=== PATIENT | female | born 1975 | race Caucasian/White ===

== ENCOUNTER 2016-07-17 15:53 | Inpatient (IN) | payer BC ==
[2016-07-17 16:38] LABS: Urine Bacteria Absent (Absent); Urine Bilirubin Negative (Negative); Urine Glucose Negative (Negative); Urine Nitrite Negative (Negative)
[2016-07-17 16:39] LABS: Hematocrit 45 % (35-47); Mean Corpuscular HGB Conc 34 g/dl (31-36); Mean Corpuscular Hemoglobin 30 pg (27-31); Mean Corpuscular Volume 90 fL (80-97); Mean Platelet Volume 9 um3 (7.4-10.4); Red Blood Count 4.95 10^6/ul (4.0-5.4); Red Cell Distribution Width 13 % (10.5-15); White Blood Count 7.5 10^3/ul (3.5-10.8)
[2016-07-17 16:54] LABS: ALT 14 U/L (7-52); AST 15 U/L (13-39); Albumin 4.4 g/dL (3.2-5.2); Alkaline Phosphatase 60 U/L (34-104); Anion Gap 11 mmol/L (2-11); BUN/Creatinine Ratio 15.4 (8-20); Blood Urea Nitrogen 10 mg/dL (6-24); CO2 Carbon Dioxide 24 mmol/L (22-32); Chloride 99 mmol/L (101-111); EGFR African American 129.2 (>60); EGFR Non-African American 100.4 (>60); Globulin 4.6 g/dL (2-4); Glucose 170 mg/dL (70-100); Potassium 3.2 mmol/L (3.5-5.0); Sodium 134 mmol/L (133-145)
[2016-07-17 16:55] LABS: Benzodiazepine Urine Screen None Detected (None Detect)
[2016-07-17 17:18] LABS: Acetaminophen < 15 mcg/mL; Alcohol < 10 mg/dL (<10); Salicylate < 2.50 mg/dL (<30)
[2016-07-17 17:28] LABS: TSH (Thyroid Stimulating Horm) 0.82 mcIU/mL (0.34-5.60)
[2016-07-17] MEDS ORDERED: Potassium Chlor TAB* 20 MEQ TAB.ER PO ONE (17:30)
--- NOTE | 2016-07-17 19:14 | PN ---
Ruben Valencia Billy, scribed for Bennie Lei MD on 07/17/16 at 1913 . Progress Note - Progress Note Note: Signed off on voluntary admission to mental health services. Admitted to Dr. Witt. Diagnosis: Depression, psychosis Condition: Stable Disposition: Admit to [facility] mental health services. The documentation as recorded by the Ruben saab Billy accurately reflects the service I personally performed and the decisions made by Do mack Drew, MD.
[2016-07-17] MEDS ORDERED: Al Hydrox/Mg Hydrox/Simet LIQ* 30 ML UDC PO PRN (20:55)
[2016-07-17] MEDS ORDERED: Acetaminophen TAB* 325 MG PO PRN (20:55)
[2016-07-18] MEDS: Paliperidone TAB* 6 MG PO SCH (08:02)
[2016-07-18] MEDS: Vitamin THERAPEUTIC TAB PO SCH (08:02)
[2016-07-18] MEDS: Sertraline* 100 MG TAB PO SCH (08:02)
[2016-07-18] MEDS ORDERED: Influenza VAC *QUAD* 2016-17* 0.5 ML SYRINGE IM ONE (09:00)
[2016-07-18] MEDS ORDERED: Nicotine Inhaler* 10 MG AMP INH PRN (10:28)
[2016-07-18] MEDS ORDERED: Mouth Piece, Nicotine* 1 EACH CARTRIDGE INH ONE (11:00)
--- NOTE | 2016-07-18 11:47 | HP ---
DATE OF ADMISSION: 07/17/2016. IDENTIFYING DATA: Kristie Mathew is a 41-year-old, , domiciled, employed female with a history of psychosis, prior psychiatric hospitalizations, and diagnostic considerations for depression, bipolar disorder, dissociative disorder, and chronic psychotic disorder. She is admitted to the Psychiatric Unit after coming to the hospital emergency room by ambulance due to concerns over suicidal ideation, poor functioning, and worry about "becoming psychotic and depressed." HISTORY OF PRESENT ILLNESS: Kristie was last admitted to our psychiatric unit in October of 2015. She reports an up and down course since then saying that she tries really hard to function and do well for a period of time and then "gives up." She reports consistent treatment at [facility], but said she went off her medications for about two months starting in April after the disappointment of her daughter being arrested for shoplifting. She reported taking her current regimen for about two months now. She reports chronic depression, but feels that over the last few weeks she has been sad and down pretty much all the time with feelings of helplessness and hopelessness. She notes some ability to enjoy things. Sleep has been erratic and energy is low. She had some suicidal thoughts the other day, but she affirms with me that she would never take her own life based on attachment to her family and concern for the impact on them. She reports chronic levels of anxiety that are generally elevated, but reports "it's been a little bit better lately." She denies manic symptoms. She reports auditory hallucinations, saying voices are basically her own thoughts, but they feel distant like they are another person. They basically give her content that is somewhat self critical. She denied any commands. She denied violent ideation or new health diagnosis. She denied the use of alcohol or drugs. She reported variable amounts of cigarette smoking. She was interested in receiving advice on any medication adjustments and also having the support of the unit. She is expected to improve here. She reports additional psychotic symptom of paranoid ideation in which she believes other people are always talking about her. She says it is episodic, but it is actually occurring here on the unit with her having ideas of reference this morning. PRIOR PSYCHIATRIC HISTORY: Two previous psychiatric hospitalizations. She has had psychotic symptoms on her episodes. The first was in July of 2014. She previously had only a brief instance of outpatient counseling in 1976 due to depression. She has been in outpatient care at [facility]. Prior medication trial was Risperidone. She has no known history of suicidal behavior, self-harm, or violence. Diagnostic considerations have included schizoaffective disorder, depression with psychotic features, PTSD, dissociative process. PAST MEDICAL HISTORY: Hypertension, obesity. CURRENT OUTPATIENT REGIMEN (ADHERENT FOR THE LAST COUPLE OF MONTHS): 1. Sertraline 100 mg a day. 2. Paliperidone 12 mg per day. ALLERGIES: No known drug allergies. FAMILY PSYCHIATRIC HISTORY: Brother had alcohol dependence and a suicide attempt. Father had alcohol dependence. A paternal aunt had alcohol dependence. No known history of other suicidal behavior. SUBSTANCE USE HISTORY: Denies current use of alcohol or drugs and previously said she used alcohol very sporadically. She denied ever having use of illicit drugs or having any prescription medication abuse. She has reported a variable amount of around a half-a-pack of cigarettes per day. SOCIAL HISTORY: Grew up in [place], [place] and was raised by both her parents. Her father has . She has a brother and sister. She left school in 12th grade, but later got her GED and trained in the [email or web address]. 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 She has been with her for about 20 years. She has a 22-year- old son from a previous relationship and she and her have children, 16 and 19. Her brother has involved in her life and lives nearby. MENTAL STATUS EXAMINATION: Obese, middle-aged, female who is fairly well- kempt with good hygiene. She is somewhat sullen looking and tearful, maintains good eye contact. Speech is terse, nonspontaneous with somewhat longer latencies at times. Mood is described as "down." Affect is constricted and dysphoric, but brightens a little bit. Her thought process is impoverished , thought content negative for suicidal or homicidal ideation. She notes some ideas of reference and paranoid delusions. Sensorium is currently clear. She is alert and oriented times three. Insight and judgment is fair to poor and impulse control is currently intact. REVIEW OF SYSTEMS: Negative for seizures or neurologic changes. Reports recent upper respiratory tract infection, either a cold or bronchitis and a subsequent cough which is ongoing now. Denied chest pain or syncope. Noted some gastrointestinal distress with left-sided fullness, bloating, and flatulence. Reported history of constipation and diarrhea. Reports urinary discomfort when not drinking enough water. Reports left ankle chronic pain. Denied skin problems. PHYSICAL EXAMINATION GENERAL: Obese, middle-aged, woman who is cooperative for the examination, wearing scrub clothing. SKIN: Intact without rash or petechia over the exposed areas. VITAL SIGNS: Temperature 99, blood pressure 114/68, pulse 77, respiratory rate 16. HEENT: Atraumatic, normocephalic. Eyes with full ROM and PERRLA. Oropharynx is clear. NECK: Midline trachea. CHEST: Clear to auscultation bilaterally. CARDIAC: Regular rate and rhythm. S1, S2. No murmurs, rubs or gallops. ABDOMEN: Soft, nontender, nondistended, obese. Bowel sounds are normal. EXTREMITIES: Distal pulses are intact bilaterally. NEUROLOGIC: Gait is within normal limits. The four extremities move spontaneously. Cranial nerves II through XII are grossly nonfocal and deep tendon reflexes are present at the patellae. ADMISSION LABORATORY STUDIES: CBC had 84 percent neutrophils and 10 percent lymphocytes with 0.7 absolute lymphocytes. Comprehensive panel had potassium of 3.2, chloride of 99, glucose of 107, a total protein of 9, and a globulin of 4.6. Urinalysis had 2+ protein, trace ketones, present squamous epithelial cells , and present hyaline cast. Toxicology screen is negative for Tylenol, alcohol or salicylates. Urine drug screen was negative. IMPRESSION: Kristie is medically stable for psychiatric hospitalization. CLINICAL SUMMARY: Third psychiatric hospitalization for this 41-year-old female with psychotic tendencies and mood condition, and possible dissociative features. She presents with distress, difficulty functioning, some level of passive suicidal ideation, report of auditory hallucinations and delusional thoughts. This is in the setting of subacute interruption of treatment, but ongoing medication adherence now and routine life stressors. She merits psychiatric hospitalization for safety, stabilization and treatment plan. ADMISSION DIAGNOSES: Mood disorder, not otherwise specified; psychotic disorder , not otherwise specified; rule out schizoaffective disorder, dissociative disorder, depression with psychotic features. TREATMENT PLAN: Admit to the Psychiatric Unit, code status is full, safety checks are at 15 minute intervals. Initiate comprehensive group milieu and individual psychotherapeutic support. Medication management continues the outpatient medication regimen at this time and we will discuss any further intervention with the outpatient psychiatrist, Dr. Bell. Target symptoms are hallucinations, delusional ideation, elevated distress, dysphoria and recent suicidal thoughts. The patient's strengths are her positive help seeking behavior and her intact intellectual functioning and basic baseline health. Discharge planning will involve coordination with appropriate aftercare. [id number]/[facility] #: [id number] TASIA
--- NOTE | 2016-07-18 18:09 | ED ---
Hellen Valencia Alok, scribed for David Flores MD on 07/17/16 at 1609 . Psychiatric Complaint - HPI Summary HPI Summary: 41 y/o female presents to the ED with c/o of depression with SI. Pt states she has been having suicidal thoughts since three days ago but no plan for execution. Pt adds she has been quite isolated as well as paranoid as of late. PMHx includes depression, anxiety, and HTN. Medications include sertraline. PSHx includes a caesarean section and tubal litigation. - History Of Current Complaint Time Seen by Provider: 07/17/16 16:00 Hx Obtained From: Patient ?: No Onset/Duration: Gradual Onset, Lasting Days, Still Present Severity Initially: Moderate Severity Currently: Moderate Character: Depressed, Anxious Aggravating Factor(s): Nothing Alleviating Factor(s): Nothing Associated Signs And Symptoms: Positive: Paranoid Behavior, Social Isolation Has Suicidal: Reports: Thoughts - Allergies/Home Medications Allergies/Adverse Reactions: Allergies Allergy/AdvReac Type Severity Reaction Status Date / Time No Known Allergies Allergy Verified 11/03/15 22:28 Home Medications: Home Medications Paliperidone TAB* [Invega TAB*] 12 mg PO DAILY 07/17/16 [History Confirmed 07/17] Sertraline* [Zoloft*] 100 mg PO DAILY 07/17/16 [History Confirmed 07/17/16] PMH/Surg Hx/FS Hx/Imm Hx Endocrine/Hematology History: Denies: Hx Diabetes Cardiovascular History: Reports: Hx Hypertension Denies: Hx Pacemaker/ICD Respiratory History: Reports: Hx Asthma History: Denies: Hx Renal Disease Neurological History: Reports: Hx Headaches Psychiatric History: Reports: Hx Anxiety, Hx Depression, Hx Community Mental Health Tx, Hx Schizophrenia Denies: Hx Eating Disorder, Hx Panic Disorder, Hx Inpatient Treatment, Hx of Violent Episodes Against Others - Surgical History Surgery Procedure, Year, and Place: , tubal with right tub removed, right ovarian cyst removed - Family History Known Family History: Positive: Hypertension - Mother - Social History Lives: With Family - Alcohol Use: None Substance Use Type: Reports: None Smoking Status (MU): Never Smoked Tobacco Review of Systems Negative: Fever Positive: Anxious, Depressed All Other Systems Reviewed And Are Negative: Yes Physical Exam Triage Information Reviewed: Yes Vital Signs On Initial Exam: Initial Vitals Temp Pulse Resp BP Pulse Ox 98.6 F 124 18 146/88 98 07/17/16 16:09 07/17/16 16:09 07/17/16 16:09 07/17/16 16:09 07/17/16 16:09 Vital Signs Reviewed: Yes Appearance: Positive: Well-Appearing, No Pain Distress, Well-Nourished Skin: Positive: Warm, Skin Color Reflects Adequate Perfusion, Dry Head/Face: Positive: Normal Head/Face Inspection Eyes: Positive: Normal, EOMI, KANU ENT: Positive: Normal ENT inspection Neck: Positive: Supple, Nontender Respiratory/Lung Sounds: Positive: Clear to Auscultation, Breath Sounds Present Cardiovascular: Positive: Normal, RRR Abdomen Description: Positive: Nontender, Soft Bowel Sounds: Positive: Present Musculoskeletal: Positive: Normal, Strength/ROM Intact Neurological: Positive: Normal, Sensory/Motor Intact, Alert, Oriented to Person Place, Time Psychiatric: Positive: Anxious Diagnostics - Vital Signs Vital Signs Temp Pulse Resp BP Pulse Ox 07/17/16 16:09 98.6 F 124 18 146/88 98 - Laboratory Lab Results: Lab Results 07/17/16 07/17/16 07/17/16 Range/Units 16:18 16:18 16:32 WBC 7.5 (3.5-10.8) 10^3/ul RBC 4.95 (4.0-5.4) 10^6/ul Hgb 15.0 (12.0-16.0) g/dl Hct 45 (35-47) % MCV 90 (80-97) fL MCH 30 (27-31) pg MCHC 34 (31-36) g/dl RDW 13 (10.5-15) % Plt Count 228 (150-450) 10^3/ul MPV 9 (7.4-10.4) um3 Neut % (Auto) 84.0 H (38-83) % Lymph % (Auto) 10.0 L (25-47) % Assumption % (Auto) 4.7 (1-9) % Eos % (Auto) 0.3 (0-6) % Baso % (Auto) 1.0 (0-2) % Absolute Neuts (auto) 6.3 (1.5-7.7) 10^3/ul Absolute Lymphs (auto) 0.7 L (1.0-4.8) 10^3/ul Absolute Monos (auto) 0.4 (0-0.8) 10^3/ul Absolute Eos (auto) 0 (0-0.6) 10^3/ul Absolute Basos (auto) 0.1 (0-0.2) 10^3/ul Absolute Nucleated RBC 0 10^3/ul Nucleated RBC % 0 Sodium (133-145) mmol/L Potassium (3.5-5.0) mmol/L Chloride (101-111) mmol/L Carbon Dioxide (22-32) mmol/L Anion Gap (2-11) mmol/L BUN (6-24) mg/dL Creatinine (0.51-0.95) mg/dL Est GFR ( Amer) (>60) Est GFR (Non-Af Amer) (>60) BUN/Creatinine Ratio (8-20) Glucose (70-100) mg/dL Calcium (8.6-10.3) mg/dL Total Bilirubin (0.2-1.0) mg/dL AST (13-39) U/L ALT (7-52) U/L Alkaline Phosphatase (34-104) U/L Total Protein (6.4-8.9) g/dL Albumin (3.2-5.2) g/dL Globulin (2-4) g/dL Albumin/Globulin Ratio (1-3) TSH (0.34-5.60) mcIU/mL Urine Color Yellow Urine Appearance Cloudy Urine pH 5.0 (5-9) Ur Specific Lindsay 1.016 (1.010-1.030) Urine Protein 2+(100 mg/dl) H (Negative) Urine Ketones Trace H (Negative) Urine Blood Negative (Negative) Urine Nitrate Negative (Negative) Urine Bilirubin Negative (Negative) Urine Urobilinogen Negative (Negative) Ur Leukocyte Esterase Negative (Negative) Urine WBC (Auto) Absent (Absent) Urine RBC (Auto) Absent (Absent) Ur Squamous Epith Cells Present H (Absent) Urine Bacteria Absent (Absent) Hyaline Casts Present H (Absent) Urine Glucose Negative (Negative) Salicylates (<30) mg/dL Urine Opiates Screen None detected (None Detect) Acetaminophen mcg/mL Ur Barbiturates Screen None detected (None Detect) Ur Phencyclidine Scrn None detected (None Detect) Ur Amphetamines Screen None detected (None Detect) U Benzodiazepines Scrn None detected (None Detect) Urine Cocaine Screen None detected (None Detect) U Cannabinoids Screen None detected (None Detect) Serum Alcohol (<10) mg/dL 07/17/16 Range/Units 16:32 WBC (3.5-10.8) 10^3/ul RBC (4.0-5.4) 10^6/ul Hgb (12.0-16.0) g/dl Hct (35-47) % MCV (80-97) fL MCH (27-31) pg MCHC (31-36) g/dl RDW (10.5-15) % Plt Count (150-450) 10^3/ul MPV (7.4-10.4) um3 Neut % (Auto) (38-83) % Lymph % (Auto) (25-47) % Assumption % (Auto) (1-9) % Eos % (Auto) (0-6) % Baso % (Auto) (0-2) % Absolute Neuts (auto) (1.5-7.7) 10^3/ul Absolute Lymphs (auto) (1.0-4.8) 10^3/ul Absolute Monos (auto) (0-0.8) 10^3/ul Absolute Eos (auto) (0-0.6) 10^3/ul Absolute Basos (auto) (0-0.2) 10^3/ul Absolute Nucleated RBC 10^3/ul Nucleated RBC % Sodium 134 (133-145) mmol/L Potassium 3.2 L (3.5-5.0) mmol/L Chloride 99 L (101-111) mmol/L Carbon Dioxide 24 (22-32) mmol/L Anion Gap 11 (2-11) mmol/L BUN 10 (6-24) mg/dL Creatinine 0.65 (0.51-0.95) mg/dL Est GFR ( Amer) 129.2 (>60) Est GFR (Non-Af Amer) 100.4 (>60) BUN/Creatinine Ratio 15.4 (8-20) Glucose 170 H (70-100) mg/dL Calcium 10.0 (8.6-10.3) mg/dL Total Bilirubin 0.30 (0.2-1.0) mg/dL AST 15 (13-39) U/L ALT 14 (7-52) U/L Alkaline Phosphatase 60 (34-104) U/L Total Protein 9.0 H (6.4-8.9) g/dL Albumin 4.4 (3.2-5.2) g/dL Globulin 4.6 H (2-4) g/dL Albumin/Globulin Ratio 1.0 (1-3) TSH 0.82 (0.34-5.60) mcIU/mL Urine Color Urine Appearance Urine pH (5-9) Ur Specific Lindsay (1.010-1.030) Urine Protein (Negative) Urine Ketones (Negative) Urine Blood (Negative) Urine Nitrate (Negative) Urine Bilirubin (Negative) Urine Urobilinogen (Negative) Ur Leukocyte Esterase (Negative) Urine WBC (Auto) (Absent) Urine RBC (Auto) (Absent) Ur Squamous Epith Cells (Absent) Urine Bacteria (Absent) Hyaline Casts (Absent) Urine Glucose (Negative) Salicylates < 2.50 (<30) mg/dL Urine Opiates Screen (None Detect) Acetaminophen < 15 mcg/mL Ur Barbiturates Screen (None Detect) Ur Phencyclidine Scrn (None Detect) Ur Amphetamines Screen (None Detect) U Benzodiazepines Scrn (None Detect) Urine Cocaine Screen (None Detect) U Cannabinoids Screen (None Detect) Serum Alcohol < 10 (<10) mg/dL Result Diagrams: 07/17/16 16:32 07/17/16 16:32 Lab Statement: Any lab studies that have been ordered have been reviewed, and results considered in the medical decision making process. Course/Dx - Course Course Of Treatment: 41 y/o female presents to the ED with c/o of depression with SI. Pt states she has been having suicidal thoughts since three days ago but no plan for execution. Pt adds she has been quite isolated as well as paranoid as of late. PMHx includes depression, anxiety, and HTN. Medications include sertraline. PSHx includes a caesarean section and tubal litigation. Assessment/Plan: All blood work WNL. He is medically cleared. He is awaiting for a MHE. Patient is hemodynamically stable and A+O x 3. Patient was signed out to next ER Attending - Differential Dx/Clinical Impression Differential Diagnosis/HQI/PQRI: Positive: Depression, Suicidal Ideation Provider Diagnosis: Depression Discharge - Discharge Plan Condition: Stable Disposition: ADMITTED TO [facility] documentation as recorded by the Hellen saab Alok accurately reflects the service I personally performed and the decisions made by , David Flores MD.
[2016-07-18] MEDS ORDERED: hydrOXYzine HCL TAB* 50 MG ONE (21:05)
[2016-07-18] MEDS ORDERED: traZODone TAB* 50 MG TAB PO ONE (22:00)
[2016-07-18] MEDS ORDERED: hydrOXYzine HCL TAB* 50 MG PO ONE (22:00)
[2016-07-19] MEDS: Sertraline* 100 MG TAB PO SCH ×2 (08:41→10:55)
[2016-07-19] MEDS: Vitamin THERAPEUTIC TAB PO SCH (08:41)
[2016-07-19] MEDS ORDERED: Mouth Piece, Nicotine* 1 EACH CARTRIDGE ONE (10:03)
[2016-07-19] MEDS: Paliperidone TAB* 6 MG PO SCH ×2 (10:13→10:55)
[2016-07-19] MEDS ORDERED: Benztropine TAB* 1 MG PO ONE (11:00)
[2016-07-19] MEDS ORDERED: LORazepam TAB(*) 1 MG PO ONE ×2 (11:00→19:14)
[2016-07-19] MEDS ORDERED: LORazepam INJ* 2 MG/ML 1 ML VIAL IM PRN (19:14)
[2016-07-19] MEDS ORDERED: LORazepam TAB(*) 1 MG ONE (19:17)
[2016-07-20] MEDS: Vitamin THERAPEUTIC TAB PO SCH (08:49)
[2016-07-20] MEDS: Sertraline* 100 MG TAB PO SCH (08:49)
[2016-07-20] MEDS: Paliperidone TAB* 6 MG PO SCH (08:49)
[2016-07-20] MEDS: Benztropine TAB* 1 MG PO SCH ×2 (13:36→21:31)
--- NOTE | 2016-07-20 21:11 | PN ---
Subjective - Subjective Service Type: 44220 Hosp care 15 min low complexity Subjective: Kristie had rough time yesterday but doing much better today. She appeared to be experiencing akathesia and was found pacing and intruding into others' spaces. Refused to tale any meds and finally took PO LOrazepam and Cogentin. She has been doing fine all day today. Objective - Appearance Appearance: Obese Dysmorphic Features: No Hygiene: Normal Grooming: Disheveled - Behavior Psychomotor Activities: Normal Exhibits Abnormal Movement: No - Attitude and Relatedness Attitude and Relatedness: Appropriate Eye Contact: Fair - Speech Quality: Unpressured Latencies: Normal Quantity: Appropriate - Mood Patient's Decription of Mood: "Okay" - Affect Observed Affect: Non-labile - Thought Process Patient's Thought Process: Coherent, Goal Directed Thought Content: No Passive Wish, No Suicidal Planning, No Homicidal Ideation, No Paranoid Ideation - Sensorium Experiencing Hallucinations: No, Sensorium is Clear Type of Hallucinations: Visual: No, Auditory: No, Command: No - Level of Consciousness Level of Consciousness: Alert Orientation: Yes Intact, Yes Orientated to Time, Yes Orientated to Place, Yes Orientated to Person - Impulse Control Impulse Control: Intact - Insight and Judgement Insight and Judgement: Fair - Group Participation Particating in Group Activities: No - Medication Management Medication Management Adherence: Yes Assessment - Assessment Merits Inpatient Hospitalization: For Stabilization, For Discharge Planning Plan - Plan Treatment Plan: Name: KRISTIE SEGOVIA Birthdate: 1975 [id number] Continued Medication Management: Continue Outpt Medication Medications: Current Medications Acetaminophen (Tylenol Tab*) 650 mg PO Q4H PRN PRN Reason: PAIN or TEMP > 101 F Al Hydrox/Mg Hydrox/Simethicone (Maalox Plus*) 30 ml PO Q4H PRN PRN Reason: INDIGESTION Benztropine Mesylate (Cogentin Tab*) 1 mg PO BID [facility] Last Admin: 07/20/16 13:36 Dose: 1 mg Multivitamins (Theragran Tab*) 1 tab PO DAILY [facility] Last Admin: 07/20/16 08:49 Dose: 1 tab Nicotine (Nicotine Inhaler*) 10 mg INH Q2H PRN PRN Reason: CRAVING Last Admin: 07/18/16 12:06 Dose: 10 mg Paliperidone (Invega Tab*) 12 mg PO DAILY [facility] Last Admin: 07/20/16 08:49 Dose: 12 mg Sertraline HCl (Zoloft*) 100 mg PO DAILY [facility] Last Admin: 07/20/16 08:49 Dose: 100 mg - Discharge Plan Discharge Plan: Outpatient Follow Up Outpatient Program: [facility]
[2016-07-21] MEDS: Paliperidone TAB* 6 MG PO SCH (08:22)
[2016-07-21] MEDS: Sertraline* 100 MG TAB PO SCH (08:22)
[2016-07-21] MEDS: Vitamin THERAPEUTIC TAB PO SCH (08:22)
[2016-07-21] MEDS: Benztropine TAB* 1 MG PO SCH ×2 (08:22→21:21)
--- NOTE | 2016-07-21 08:56 | PN ---
Subjective - Subjective Service Type: 34869 Hosp care 15 min low complexity Subjective: Kristie reports ongoing struggle (tearfully): "I couldn't get it together!!" She reports ongoing hallucinations of voices, and appered to respond to internal stimuli. And she endorsed ideas of reference with people's conversation, feeling paranoid. Made no buddhist comments but acknowledged increase over the weekend. Agreed with info I relayed ( Dr. Bell's recommendation ) about Sustenna and consented to it. She was interested in higher dose Zoloft for mood and anxiety sxs. She affirmed she is safe here. She asked for medicine to help with cough (it has lingered after a recent cold). Objective - Appearance Appearance: Obese Hygiene: Normal Grooming: Well Kept - Behavior Psychomotor Activities: Normal - Attitude and Relatedness Attitude and Relatedness: Psychotically Related Eye Contact: Good - Speech Quality: Unpressured Latencies: Long Quantity: Terse - Mood Patient's Decription of Mood: "Upset" - Affect Observed Affect: Non-labile Affect Consistent with: Dysphoria - Thought Process Patient's Thought Process: Impoverished - blocked Thought Content: Yes Paranoid Ideation, No Passive Wish, No Suicidal Planning, No Homicidal Ideation - Sensorium Experiencing Hallucinations: Yes - Level of Consciousness Level of Consciousness: Alert - Impulse Control Impulse Control: Intact - Insight and Judgement Insight and Judgement: Poor Assessment - Assessment Merits Inpatient Hospitalization: For Immediate Safety, For Stabilization, To Initiate Treatment, For Ongoing Evaluation, For Discharge Planning, Pending Safe DC Plan Inpatient DSM-IV Dx: Mood disorder, not otherwise specified; psychotic disorder , not otherwise specified; rule out schizoaffective disorder, dissociative disorder, depression with psychotic features. Clinical Impression: Third psychiatric hospitalization for this 41-year-old female with psychotic tendencies and mood condition, and possible dissociative features. She presents with distress, difficulty functioning, some level of passive suicidal ideation, report of auditory hallucinations and delusional thoughts. This is in the setting of subacute interruption of treatment, but ongoing medication adherence now and routine life stress. Continues symptomatic with distress and psychosis (thought disorder, delusional ideation, hallucinations). Has been safe on checks but over the weekend Kristie had intrusive behavior and hyper-buddhist ideation. Medication management continues the outpatient medication regimen. We are switching Invega to Sustena depot, and raising Zoloft. Providing guaifensen for cough. I discussed further intervention with Kristie's outpatient psychiatrist, Dr. Bell. (spoke 07/21 - his view is that Kristie has done very well when adherent. Her regimen is appropriate, and he suspects, and I do to, that non-adherence played a role in this decompensation - he recommended Sustenna injection). Plan - Plan Treatment Plan: Name: KRISTIE SEGOVIA Birthdate: 1975 [id number] Continued Medication Management: Continue Outpt Medication Medications: Current Medications Acetaminophen (Tylenol Tab*) 650 mg PO Q4H PRN PRN Reason: PAIN or TEMP > 101 F Al Hydrox/Mg Hydrox/Simethicone (Maalox Plus*) 30 ml PO Q4H PRN PRN Reason: INDIGESTION Benztropine Mesylate (Cogentin Tab*) 1 mg PO BID [facility] Last Admin: 07/21/16 08:22 Dose: 1 mg Multivitamins (Theragran Tab*) 1 tab PO DAILY [facility] Last Admin: 07/21/16 08:22 Dose: 1 tab Nicotine (Nicotine Inhaler*) 10 mg INH Q2H PRN PRN Reason: CRAVING Last Admin: 07/18/16 12:06 Dose: 10 mg Paliperidone (Invega Tab*) 12 mg PO DAILY [facility] Last Admin: 07/21/16 08:22 Dose: 12 mg Sertraline HCl (Zoloft*) 100 mg PO DAILY [facility] Last Admin: 07/21/16 08:22 Dose: 100 mg - Discharge Plan Discharge Plan: Outpatient [facility]
[2016-07-21] MEDS ORDERED: Paliperidone TAB* 3 MG TAB PO SCH (11:30)
[2016-07-21] MEDS ORDERED: Paliperidone SUSTENNA* 234 MG/1.5 ML IM ONE (11:30)
[2016-07-21] MEDS: guaiFENesin ER TAB 600 MG PO SCH (12:54)
[2016-07-22] MEDS: Sertraline* 50 MG TAB PO SCH (07:54)
[2016-07-22] MEDS: guaiFENesin ER TAB 600 MG PO SCH (07:54)
[2016-07-22] MEDS: Vitamin THERAPEUTIC TAB PO SCH (07:54)
[2016-07-22] MEDS: Benztropine TAB* 1 MG PO SCH ×2 (07:54→21:31)
--- NOTE | 2016-07-22 13:54 | PN ---
Subjective - Subjective Service Type: 31276 Hosp care 15 min low complexity Subjective: Kristie reports "not doing well." She has latencies and staring, and endorsed "voices" saying "all (her) fears." She said she had thoughts of suicide this a.m., with no plans to act on it. She notes dysphoria, (delusionally) guilty ruminations, and anxiety. She accepted support and was guardedly hopeful she can be helped. I asked about physical symptoms. She reported an episode this a.m. saying "I was lying down and couldn't move my arms or legs... and felt turmoil in my chest." She denied any ongoing symptoms, chest pain, lightheadedness, or pattern of chest pain. She said her only somatic symptom is burning on urination and she suspects a UTI. Objective - Appearance Appearance: Obese Hygiene: Normal Grooming: Fairly Well Kept - Behavior Psychomotor Activities: Normal - Attitude and Relatedness Attitude and Relatedness: Needy Eye Contact: Good - Speech Quality: Unpressured Latencies: Long Quantity: Terse - Mood Patient's Decription of Mood: "Terrible" - Affect Observed Affect: Tense Affect Consistent with: Dysphoria - Thought Process Patient's Thought Process: Impoverished - blocked Thought Content: No Passive Wish, No Suicidal Planning, No Homicidal Ideation, No Paranoid Ideation - Sensorium Experiencing Hallucinations: Yes - Level of Consciousness Level of Consciousness: Alert - Impulse Control Impulse Control: Intact - Insight and Judgement Insight and Judgement: Poor Assessment - Assessment Merits Inpatient Hospitalization: For Immediate Safety, For Stabilization, To Initiate Treatment, For Ongoing Evaluation Inpatient DSM-IV Dx: Mood disorder, not otherwise specified; psychotic disorder , not otherwise specified; rule out schizoaffective disorder, dissociative disorder, depression with psychotic features. Clinical Impression: Third psychiatric hospitalization for this 41-year-old female with psychotic tendencies and mood condition, and possible dissociative features. She presents with distress, difficulty functioning, some level of passive suicidal ideation, report of auditory hallucinations and delusional thoughts. This is in the setting of subacute interruption of treatment, but ongoing medication adherence now and routine life stress. 1. Symptoms: Continues symptomatic with distress and psychosis (thought disorder, delusional ideation, hallucinations). Has been safe on checks without active suicidal ideation. Over the weekend she had intrusive behavior. 2. Medication management: continues the outpatient medication regimen, switching Invega to Sustena depot, and raising Zoloft, and providing guaifensen for cough. I discussed further intervention with Kristie's outpatient psychiatrist, Dr. Bell. (spoke 07/21 - his view is that Kristie has done very well when adherent. Her regimen is appropriate, and he suspects, and I do to, that non-adherence played a role in this decompensation - he recommended Sustenna injection). 3. Medical / somoatic. She complained of burning on urination 07/22 - U/A with reflex Micro ordered. She also reported brief inability to move limbs with "chest turmoil" which seems to be a psychogenic complex. Plan - Plan Treatment Plan: Name: KRISTIE SEGOVIA Birthdate: 1975 [id number] Continued Medication Management: Different Medication Medications: Current Medications Acetaminophen (Tylenol Tab*) 650 mg PO Q4H PRN PRN Reason: PAIN or TEMP > 101 F Last Admin: 07/22/16 07:54 Dose: 650 mg Al Hydrox/Mg Hydrox/Simethicone (Maalox Plus*) 30 ml PO Q4H PRN PRN Reason: INDIGESTION Benztropine Mesylate (Cogentin Tab*) 1 mg PO BID [facility] Last Admin: 07/22/16 07:54 Dose: 1 mg Guaifenesin (Mucinex*) 600 mg PO DAILY [facility] Last Admin: 07/22/16 07:54 Dose: 600 mg Multivitamins (Theragran Tab*) 1 tab PO DAILY [facility] Last Admin: 07/22/16 07:54 Dose: 1 tab Nicotine (Nicotine Inhaler*) 10 mg INH Q2H PRN PRN Reason: CRAVING Last Admin: 07/18/16 12:06 Dose: 10 mg Paliperidone (Invega Tab*) 3 mg PO DAILY [facility] Last Admin: 07/22/16 07:54 Dose: 3 mg Paliperidone Palmitate (Invega Sustenna*) 156 mg IM ONCE ONE Stop: 07/25/16 11:31 Sertraline HCl (Zoloft*) 150 mg PO DAILY [facility] Last Admin: 07/22/16 07:54 Dose: 150 mg - Discharge Plan Discharge Plan: Outpatient Follow Up
[2016-07-23] MEDS: Sertraline* 50 MG TAB PO SCH (09:05)
[2016-07-23] MEDS: Vitamin THERAPEUTIC TAB PO SCH (09:05)
[2016-07-23] MEDS: guaiFENesin ER TAB 600 MG PO SCH (09:06)
[2016-07-23] MEDS: Benztropine TAB* 1 MG PO SCH ×2 (09:06→20:18)
--- NOTE | 2016-07-23 11:18 | PN ---
[facility]: Group Therapy Note - Service Type Service Type: 20533 Group Psychotherapy - Cognitive Behavioral Group Therapy ( CBT):Patient attended CBT programming this morning and presented with flat affect that did not vary with discussion. Although responsive to direct prompts to respond to questions, patient did not engage in spontaneous conversation.
--- NOTE | 2016-07-23 13:08 | PN ---
Subjective - Subjective Service Type: 62522 Hosp care 15 min low complexity Subjective: Kristie reports remission of passive SI and continuation of benign AH of multiple voices making running commentary on her activities. Asked about and educated about current medication regimen. She complains of constipation and agrees to trial of metamucil. Objective - Appearance Appearance: Obese Dysmorphic Features: No Hygiene: Mal-odorous - Behavior Psychomotor Activities: Normal - mostly, but slightly slowed Exhibits Abnormal Movement: No - Attitude and Relatedness Attitude and Relatedness: Cooperative Eye Contact: Good - with fixed unblinking gaze - Speech Quality: Unpressured Latencies: Normal Quantity: Terse - Mood Patient's Decription of Mood: "Okay" - Affect Observed Affect: Depressed Affect Consistent with: Dysphoria - flat - Thought Process Patient's Thought Process: Coherent, Goal Directed, Impoverished Thought Content: No Passive Wish, No Suicidal Planning, No Homicidal Ideation, No Paranoid Ideation - Sensorium Experiencing Hallucinations: Yes Type of Hallucinations: Visual: No, Auditory: Yes, Command: No - Level of Consciousness Level of Consciousness: Alert Orientation: Yes Intact, Yes Orientated to Time, Yes Orientated to Place, Yes Orientated to Person - Impulse Control Impulse Control: Intact - Insight and Judgement Insight and Judgement: Poor - Group Participation Particating in Group Activities: Yes Group Participation Comments: noted as withdrawn at some groups - Medication Management Medication Management Adherence: Yes Assessment - Assessment Merits Inpatient Hospitalization: For Immediate Safety, For Stabilization, For Discharge Planning, Pending Safe DC Plan Inpatient DSM-IV Dx: Mood disorder, not otherwise specified; psychotic disorder , not otherwise specified; rule out schizoaffective disorder, dissociative disorder, depression with psychotic features. Clinical Impression: Kristie is a 41 year-old woman admitted for safety, assessement and treatment due to passive SI, AH and delusions. She has no complaint of UTI symptoms today : U/A with reflex micro sample is noted as uncollected in EMR. Does complain of constipation. Plan - Plan Treatment Plan: Name: KRISTIE SEGOVIA Birthdate: 1975 [id number] Continue increased Zoloft dose at 150 mg daily, booster Invega Sustenna 156 mg IM due on 07.25.16. Add HS metamucil against constipation. Spoke with nursing about collecting urine. Encourage engagement in groups, milieu. Plan aftercare. Medications: Current Medications Acetaminophen (Tylenol Tab*) 650 mg PO Q4H PRN PRN Reason: PAIN or TEMP > 101 F Last Admin: 07/22/16 07:54 Dose: 650 mg Al Hydrox/Mg Hydrox/Simethicone (Maalox Plus*) 30 ml PO Q4H PRN PRN Reason: INDIGESTION Benztropine Mesylate (Cogentin Tab*) 1 mg PO BID [facility] Last Admin: 07/23/16 09:06 Dose: 1 mg Guaifenesin (Mucinex*) 600 mg PO DAILY [facility] Last Admin: 07/23/16 09:06 Dose: 600 mg Multivitamins (Theragran Tab*) 1 tab PO DAILY [facility] Last Admin: 07/23/16 09:05 Dose: 1 tab Nicotine (Nicotine Inhaler*) 10 mg INH Q2H PRN PRN Reason: CRAVING Last Admin: 07/18/16 12:06 Dose: 10 mg Paliperidone Palmitate (Invega Sustenna*) 156 mg IM ONCE ONE Stop: 07/25/16 11:31 Sertraline HCl (Zoloft*) 150 mg PO DAILY [facility] Last Admin: 07/23/16 09:05 Dose: 150 mg - Discharge Plan Discharge Plan: Outpatient Follow Up
[2016-07-23] MEDS ORDERED: Docusate CAP* 100 MG PO ONE (13:16)
[2016-07-23 14:09] LABS: Urine Bacteria 1+ (Absent); Urine Bilirubin Negative (Negative); Urine Glucose Negative (Negative); Urine Nitrite Negative (Negative)
[2016-07-24] MEDS: Benztropine TAB* 1 MG PO SCH ×2 (08:57→21:57)
[2016-07-24] MEDS: Sertraline* 50 MG TAB PO SCH (08:57)
[2016-07-24] MEDS: Vitamin THERAPEUTIC TAB PO SCH (08:58)
[2016-07-24] MEDS: guaiFENesin ER TAB 600 MG PO SCH (08:58)
[2016-07-25] MEDS: Vitamin THERAPEUTIC TAB PO SCH (07:33)
[2016-07-25] MEDS: guaiFENesin ER TAB 600 MG PO SCH (07:33)
[2016-07-25] MEDS: Sertraline* 50 MG TAB PO SCH (07:33)
[2016-07-25] MEDS: Benztropine TAB* 1 MG PO SCH ×2 (07:33→20:28)
[2016-07-25] MEDS ORDERED: Paliperidone SUSTENNA* 156 MG/1 ML IM ONE (11:30)
--- NOTE | 2016-07-25 11:44 | PN ---
Subjective - Subjective Service Type: 34388 Hosp care 15 min low complexity Subjective: Kristie tearfully reports doing "Badly." She complains of ideas of reference with others' conversations, and feels paranoid. She denies auditory hallucinations. She notes feeling sad and down, and demoralized, and misses family. She recognized not having attained recovery, and agreed with care plan. She denied problems with Sustenna injection. She affirmed she is safe, and was interested in off unit walks. Objective - Appearance Appearance: Obese Hygiene: Normal Grooming: Fairly Well Kept - Behavior Psychomotor Activities: Abnormal-Decreased - Attitude and Relatedness Attitude and Relatedness: Psychotically Related Eye Contact: Good - Speech Quality: Unpressured Latencies: Long Quantity: Terse - Mood Patient's Decription of Mood: "Sad" - Affect Observed Affect: Tense Affect Consistent with: Dysphoria - Thought Process Patient's Thought Process: Impoverished - blocked Thought Content: Yes Paranoid Ideation, No Passive Wish, No Suicidal Planning, No Homicidal Ideation - Sensorium Experiencing Hallucinations: No, Sensorium is Clear - Level of Consciousness Level of Consciousness: Alert - Impulse Control Impulse Control: Intact - Insight and Judgement Insight and Judgement: Poor Assessment - Assessment Merits Inpatient Hospitalization: For Stabilization, To Initiate Treatment, For Ongoing Evaluation, Consolidate Improvements, For Discharge Planning Inpatient DSM-IV Dx: Mood disorder, not otherwise specified; psychotic disorder , not otherwise specified; rule out schizoaffective disorder, dissociative disorder, depression with psychotic features. Clinical Impression: Third psychiatric hospitalization for this 41-year-old female with psychotic tendencies and mood condition, and possible dissociative features. She presented with distress, difficulty functioning, some level of passive suicidal ideation, report of auditory hallucinations and delusional thoughts. This is in the setting of subacute interruption of treatment, but ongoing medication adherence now and routine life stress. 1. Symptoms: Continues symptomatic with distress and psychosis (thought disorder, delusional ideation) Hallucinations may be milder or remitting. Has been safe on checks without active suicidal ideation. She is safe on checks, in behavioral control. 2. Medication management: continues the outpatient medication regimen, switching Invega to Sustena depot, and raising Zoloft, and providing guaifensen for cough. I discussed further intervention with Kristie's outpatient psychiatrist, Dr. Bell. (spoke 07/21 - his view is that Kristie has done very well when adherent, that her regimen is appropriate, and he suspects, and I do to, that non-adherence played a role in this decompensation - he recommended Sustenna injection). 3. Medical / somatic. Complained of burning on urination - Urine culture yielded no significant organisms 07/22. Given distress, impairment and symptoms, requires ongoing hospital care. Plan - Plan Treatment Plan: Name: KRISTIE SEGOVIA Birthdate: 1975 [id number] Continued Medication Management: Different Medication Medications: Current Medications Acetaminophen (Tylenol Tab*) 650 mg PO Q4H PRN PRN Reason: PAIN or TEMP > 101 F Last Admin: 07/22/16 07:54 Dose: 650 mg Al Hydrox/Mg Hydrox/Simethicone (Maalox Plus*) 30 ml PO Q4H PRN PRN Reason: INDIGESTION Benztropine Mesylate (Cogentin Tab*) 1 mg PO BID [facility] Last Admin: 07/25/16 07:33 Dose: 1 mg Guaifenesin (Mucinex*) 600 mg PO DAILY [facility] Last Admin: 07/25/16 07:33 Dose: 600 mg Multivitamins (Theragran Tab*) 1 tab PO DAILY [facility] Last Admin: 07/25/16 07:33 Dose: 1 tab Nicotine (Nicotine Inhaler*) 10 mg INH Q2H PRN PRN Reason: CRAVING Last Admin: 07/18/16 12:06 Dose: 10 mg Sertraline HCl (Zoloft*) 150 mg PO DAILY [facility] Last Admin: 07/25/16 07:33 Dose: 150 mg - Discharge Plan Discharge Plan: Outpatient Follow Up Outpatient Program: [facility]
[2016-07-26] MEDS: Benztropine TAB* 1 MG PO SCH ×2 (08:32→20:24)
[2016-07-26] MEDS: Sertraline* 50 MG TAB PO SCH (08:32)
[2016-07-26] MEDS: Vitamin THERAPEUTIC TAB PO SCH (08:32)
[2016-07-26] MEDS: guaiFENesin ER TAB 600 MG PO SCH (08:32)
[2016-07-27] MEDS: Vitamin THERAPEUTIC TAB PO SCH (09:24)
[2016-07-27] MEDS: guaiFENesin ER TAB 600 MG PO SCH (09:24)
[2016-07-27] MEDS: Benztropine TAB* 1 MG PO SCH ×2 (09:25→20:32)
[2016-07-27] MEDS: Sertraline* 50 MG TAB PO SCH (09:25)
[2016-07-28] MEDS: Sertraline* 50 MG TAB PO SCH (08:27)
[2016-07-28] MEDS: Vitamin THERAPEUTIC TAB PO SCH (08:28)
[2016-07-28] MEDS: guaiFENesin ER TAB 600 MG PO SCH (08:28)
[2016-07-28] MEDS: Benztropine TAB* 1 MG PO SCH ×2 (08:28→20:38)
--- NOTE | 2016-07-28 15:02 | PN ---
Subjective - Subjective Service Type: 37756 Hosp care 15 min low complexity Subjective: The patient is seen for the first time in coverage for Dr. Snyder. She reports a decrease in her psychotic symptoms this morning, as evidenced by a reduction in thoughts of reference and other people talking about her. Her mood is improving and she denies SI. The patient does complain of dry mouth and blurred vision, which she attributes to benztropine. She denies untoward effects from her injectable paliperidone. Objective - Appearance Appearance: Well Developed/Nourished Dysmorphic Features: No Hygiene: Normal Grooming: Well Kept - Behavior Psychomotor Activities: Normal Exhibits Abnormal Movement: No - Attitude and Relatedness Attitude and Relatedness: Cooperative Eye Contact: Good - Speech Quality: Unpressured Latencies: Normal Quantity: Appropriate - Mood Patient's Decription of Mood: "Okay" - Affect Observed Affect: Fair Affect Consistent with: Euthymia - Thought Process Patient's Thought Process: Coherent Thought Content: No Passive Wish, No Suicidal Planning, No Homicidal Ideation, No Paranoid Ideation - Sensorium Experiencing Hallucinations: No, Sensorium is Clear Type of Hallucinations: Visual: No, Auditory: No, Command: No - Level of Consciousness Level of Consciousness: Alert Orientation: Yes Intact, Yes Orientated to Time, Yes Orientated to Place, Yes Orientated to Person - Impulse Control Impulse Control: Tenuous - Insight and Judgement Insight and Judgement: Fair - Group Participation Particating in Group Activities: Yes - Medication Management Medication Management Adherence: Yes Assessment - Assessment Merits Inpatient Hospitalization: Consolidate Improvements, Pending Safe DC Plan Inpatient DSM-IV Dx: Mood disorder, not otherwise specified; psychotic disorder , not otherwise specified; rule out schizoaffective disorder, dissociative disorder, depression with psychotic features. Clinical Impression: 41 y.o. , white female with a history of schizoaffective DO brought herself to the ER seeking voluntary hospitalization due to psychosis and depression. Plan - Plan Treatment Plan: Name: AUBRIE SEGOVIA Birthdate: 1975 [id number] The patient is likely experiencing anticholinergic side effects from her benztropine. We'll try reducing this to 0.5mg BID and see if there is improvement. The patient's psychiatric symptoms seem to be improving and we will reassess her need for continued hospitalization tomorrow. Continued Medication Management: Different Medication Medications: Current Medications Acetaminophen (Tylenol Tab*) 650 mg PO Q4H PRN PRN Reason: PAIN or TEMP > 101 F Last Admin: 07/22/16 07:54 Dose: 650 mg Al Hydrox/Mg Hydrox/Simethicone (Maalox Plus*) 30 ml PO Q4H PRN PRN Reason: INDIGESTION Benztropine Mesylate (Cogentin Tab*) 0.5 mg PO BID [facility] Guaifenesin (Mucinex*) 600 mg PO DAILY [facility] Last Admin: 07/28/16 08:28 Dose: 600 mg Multivitamins (Theragran Tab*) 1 tab PO DAILY [facility] Last Admin: 07/28/16 08:28 Dose: 1 tab Nicotine (Nicotine Inhaler*) 10 mg INH Q2H PRN PRN Reason: CRAVING Last Admin: 07/18/16 12:06 Dose: 10 mg Sertraline HCl (Zoloft*) 150 mg PO DAILY [facility] Last Admin: 07/28/16 08:27 Dose: 150 mg - Discharge Plan Discharge Plan: Inpatient Hospitalization
[2016-07-29 08:18] VITALS: BP 111/74
[2016-07-29] MEDS: Vitamin THERAPEUTIC TAB PO SCH (08:55)
[2016-07-29] MEDS: Sertraline* 50 MG TAB PO SCH (08:55)
[2016-07-29] MEDS: Benztropine TAB* 1 MG PO SCH (08:56)
[2016-07-29] MEDS: guaiFENesin ER TAB 600 MG PO SCH (08:57)
--- NOTE | 2016-07-30 02:35 | DS ---
DISCHARGE SUMMARY: DATE OF ADMISSION: 07/17/16 DATE OF DISCHARGE: 07/29/16 DISCHARGE DIAGNOSES: As follows: Heartwell I: Schizoaffective disorder, depressive type. Heartwell II: Deferred. Heartwell III: Hypertension, obesity. Heartwell IV: Moderate primary support stressors. Heartwell V: At the time of the admission was 30 and at the time of discharge is 60. CONDITION AT THE TIME OF DISCHARGE: Stable. The patient is calm and cooperative. She is denying experiences of a paranoid or persecutory in nature. For example, she is no longer stating that other people are listening to her or watching her. She has tolerated the injectable antipsychotic well and is agreeable to following through with this on an outpatient basis every 4 weeks. In addition, her mood is considerably better. 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 Her has arrived to the unit to pick her up and transport her home and he is in agreement with the discharge plan. The patient steadfastly denied suicidal or homicidal ideations and has done so for several days now. MENTAL STATUS EXAM: At the time of discharge is as follows, the patient is an overweight white female with long brown hair pulled back in a ponytail. She is wearing a T-shirt and sweatpants. She is calm, cooperative with good posture and easy going rapport. Speech has normal rate, tone, and volume. Mood is euthymic with a bright affect. Thought process is linear and goal directed. Thought content is significant for her desire to return home with her . She is denying suicidal or homicidal ideation. She denies auditory or visual hallucinations. Insight and judgment are fair. Cognitively, she is awake and alert with what would appear to be an average intellect. DISCHARGE INSTRUCTIONS: To the patient are as follows: A. Medications. She is to take Invega Sustenna 234 mg IM every 4 weeks. Her next injection of this is due 08/22/16. She is also taking sertraline 150 mg p.o. daily and Cogentin 0.5 mg p.o. b.i.d. B. Diet is regular. C. Activities: As tolerated. The patient is strongly encouraged to abstain from tobacco products; however she is declining the continuation of nicotine replacement therapies at this time stating her preference to continue smoking for the time being. D. Followup care: The patient will follow up at [facility] within 1 week of discharge. Further note that her next injection of Invega Sustenna is due on 08/22/16. 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 She complained of depression noting that sleep had been erratic and her energy had been low. She has had some suicidal thoughts several days prior to admission, but she affirmed to the ER clinician that she would never take her own life based on her attachment to her family and her concern for the impact on their well being. At any rate, she reported chronic levels of anxiety as well as bizarre psychotic phenomenon wherein she felt that people were talking about her and looking at her. This had been problematic given the fact that according to her , she had avoided following up with scheduled appointments at [facility] for fear that people on the street were observing her movements. Part B: Psychiatric treatment rendered: The patient was admitted to the adult inpatient psychiatric unit and placed on q.30-minute checks for her own safety. We resumed her Invega, but after a conversation with her outpatient psychiatric, Dr. Sebastien Bell it was determined that compliance was an issue for her and therefore she was transitioned to Invega Sustenna initially at a loading dose of 234 mg and then later a booster dose of 156 mg injected into her gluteal muscle on 07/25/16. In addition, her Zoloft was increased from 100 to 150 mg daily. It is notable that she did complain of dry mouth as well as blurred vision with Cogentin and this dose with decreased from 1 mg twice daily to half mg twice daily. Thereafter, she stopped complaining of these symptoms. It is notable that throughout her hospitalization, she improved on a daily basis, being more social going to groups, being involved in milieu activities. Her similarly noticed a difference in her behavior and felt that she was approaching her baseline. At the time of discharge, we have met with her and he agrees that she is safe for discharge being back to her baseline level of functioning and the patient is agreeable and in fact very eager to go home and be with her family. She is willing to follow up with [facility] and her psychotic and affective symptoms are similarly under control. [id number]/[facility] #: [id number] TASIA
== END 2016-07-29 13:45 | disposition home or self-care (01) | DRG 750 ==
LOC: ED 15:53 → BSU 19:10
PROVIDERS: ADMIT Psychiatry & Neurology Psychiatry; ATTEND Psychiatry & Neurology Psychiatry
DX: F25.1 Schizoaffective disorder, depressive type (principal); Z68.41 Body mass index [BMI] 40.0-44.9, adult; I10 Essential (primary) hypertension; E66.9 Obesity, unspecified; F17.210 Nicotine dependence, cigarettes, uncomplicated; R30.0 Dysuria; K59.00 Constipation, unspecified; R05 Cough; Z81.8 Family history of other mental and behavioral disorders; Z81.1 Family history of alcohol abuse and dependence
CPT/HCPCS: 36415; 80053; 80307; 80320; 80329; 81003; 81015; 84443; 85025; 87086; 90686; 90853; 99222; 99231; 99238; A9270-GY; G0480

== ENCOUNTER 2017-07-15 17:46 | Inpatient (IN) | payer BC ==
[2017-07-15 18:35] LABS: ABS Basophils 0 10^3/ul (0-0.2); ABS Eosinophils 0 10^3/ul (0-0.6); ABS Lymphocytes 0.9 10^3/ul (1.0-4.8); ABS Monocytes 0.4 10^3/ul (0-0.8); ABS Neutrophils 6.8 10^3/ul (1.5-7.7); ABS Nucleated RBC 0 10^3/ul; Eosinophil % 0.3 % (0-6); Hematocrit 40 % (35-47); Hemoglobin 13.8 g/dl (12.0-16.0); Lymphocyte % 11.3 % (25-47); Mean Corpuscular HGB Conc 34 g/dl (31-36); Mean Corpuscular Hemoglobin 32 pg (27-31); Mean Corpuscular Volume 92 fL (80-97); Mean Platelet Volume 9 um3 (7.4-10.4); Nucleated Red Blood Cells % 0.1; Platelet Count 228 10^3/ul (150-450); Red Blood Count 4.36 10^6/ul (4.0-5.4); Red Cell Distribution Width 14 % (10.5-15); White Blood Count 8.1 10^3/ul (3.5-10.8)
--- NOTE | 2017-07-15 18:50 | ED ---
John Valencia Angela, scribed for David Flores MD on 07/15/17 at 1839 . Psychiatric Complaint - HPI Summary HPI Summary: This pt is a 42 y/o female presenting to [facility] c/o paranoia. Pt reports she has felt paranoia for the last week. Pt states she thinks she is going to lose her job. Today, pt notes she was having a conversation with the teachers at school and thought they were talking about her to her boss about her not doing her job. She spoke to her boss and was told she was not making any sense. Pt called [facility] and was told to come to the ED to be evaluated. She denies any SI thoughts, plan, or HI. - History Of Current Complaint Chief Complaint: EDMentalHealth Time Seen by Provider: 07/15/17 18:07 Hx Obtained From: Patient Onset/Duration: Lasting Days, Still Present Timing: Days Severity Currently: Moderate Character: Manic Aggravating Factor(s): Nothing Alleviating Factor(s): Nothing Associated Signs And Symptoms: Positive: Paranoid Behavior Has Suicidal: Denies: Thoughts, With A Plan Has Homicidal: Denies: Thoughts, With A Plan - Allergies/Home Medications Allergies/Adverse Reactions: Allergies Allergy/AdvReac Type Severity Reaction Status Date / Time No Known Allergies Allergy Verified 11/03/15 22:28 PMH/Surg Hx/FS Hx/Imm Hx Endocrine/Hematology History: Denies: Hx Diabetes Cardiovascular History: Reports: Hx Hypertension Denies: Hx Pacemaker/ICD Respiratory History: Reports: Hx Asthma History: Denies: Hx Renal Disease Neurological History: Reports: Hx Headaches Psychiatric History: Reports: Hx Anxiety, Hx Depression, Hx Post Traumatic Stress Disorder, Hx Community Mental Health Tx, Hx Schizophrenia Denies: Hx Eating Disorder, Hx Panic Disorder, Hx Inpatient Treatment, Hx of Violent Episodes Against Others - Surgical History Surgery Procedure, Year, and Place: , tubal with right tub removed, right ovarian cyst removed Infectious Disease History: No Infectious Disease History: Denies: Traveled Outside the [place] in Last 30 Days - Family History Known Family History: Positive: Hypertension - Mother - Social History Alcohol Use: Patient states that she drinks rarely- at holidays Substance Use Type: Reports: None Smoking Status (MU): Never Smoked Tobacco Type: Cigarettes Review of Systems Negative: Fever, Chills Eyes: Negative ENT: Negative Cardiovascular: Negative Respiratory: Negative Gastrointestinal: Negative Psychological: Other - paranoia Negative: Other - SI or HI All Other Systems Reviewed And Are Negative: Yes Physical Exam - Summary Physical Exam Summary: VITAL SIGNS: Reviewed. GENERAL: Patient is an obese female. Patient is not in any acute respiratory distress. HEAD AND FACE: No signs of trauma. No ecchymosis, hematomas or skull depressions. No sinus tenderness. EYES: PERRLA, EOMI x 2, No injected conjunctiva, no nystagmus. EARS: Hearing grossly intact. Ear canals and tympanic membranes are within normal limits. MOUTH: Oropharynx within normal limits. NECK: Supple, trachea is midline, no adenopathy, no JVD, no carotid bruit, no c- spine tenderness, neck with full ROM. CHEST: Symmetric, no tenderness at palpation LUNGS: Clear to auscultation bilaterally. No wheezing or crackles. CVS: Regular rate and rhythm, S1 and S2 present, no murmurs or gallops appreciated. ABDOMEN: Soft, non-tender. No signs of distention. No rebound no guarding, and no masses palpated. Bowel sounds are normal. EXTREMITIES: FROM in all major joints, no edema, no cyanosis or clubbing. NEURO: Alert and oriented x 3. No acute neurological deficits. Speech is normal and follows commands. SKIN: Dry and warm Triage Information Reviewed: Yes Vital Signs On Initial Exam: Initial Vitals Temp Pulse Resp BP Pulse Ox 97.6 F 94 18 161/90 98 07/15/17 17:53 07/15/17 17:53 07/15/17 17:53 07/15/17 17:53 07/15/17 17:53 Vital Signs Reviewed: Yes Diagnostics - Vital Signs Vital Signs Temp Pulse Resp BP Pulse Ox 07/15/17 17:53 97.6 F 94 18 161/90 98 - Laboratory Lab Statement: Any lab studies that have been ordered have been reviewed, and results considered in the medical decision making process. Course/Dx - Course Assessment/Plan: This pt is a 42 y/o female presenting to [facility] c/o paranoia. Pt reports she has felt paranoia for the last week. Pt states she thinks she is going to lose her job. Today, pt notes she was having a conversation with the teachers at school and thought they were talking about her to her boss about her not doing her job. She spoke to her boss and was told she was not making any sense. Pt called [facility] and was told to come to the ED to be evaluated. She denies any SI thoughts, plan, or HI. Pt is medically cleared at 18:35. She is awaiting MHE. Pt will be signed out to Dr. Salinas, pending disposition, awaiting MHE. - Differential Dx/Clinical Impression Provider Diagnosis: Paranoia Discharge - Discharge Plan Condition: Stable Disposition: OTHER Discharge Disposition Comment: signed out to Dr. Salinas, pending disposition, awaiting MHE. Referrals: Bear Ford MD [Primary Care Provider] - The documentation as recorded by the John saab Angela accurately reflects the service I personally performed and the decisions made by me, David Flores MD.
[2017-07-15 18:57] LABS: EGFR Non-African American 84.7 (>60)
[2017-07-15 20:16] LABS: Urine Appearance Cloudy; Urine Blood Negative (Negative); Urine Color Yellow; Urine Ketones Negative (Negative); Urine Protein Negative (Negative); Urine Specific Gravity 1.015 (1.010-1.030); Urine Urobilinogen Negative (Negative)
--- NOTE | 2017-07-15 21:07 | ED ---
I, Nataliia Britt, scribed for Mark Salinas MD on 07/15/17 at 2026 . Progress - Progress Note Progress Note: This pt was a sign out from Dr. Flores at shift change (19:00) pending MHE. Course/Dx - Course Course Of Treatment: The pt has been admitted into FLEX unit. - Diagnoses Provider Diagnoses: Paranoia, depression NOS The documentation as recorded by the Balwinder saab Stephanie accurately reflects the service I personally performed and the decisions made by , Mark Salinas MD.
[2017-07-15] MEDS ORDERED: Nicotine Inhaler* 10 MG AMP ONE (23:10)
[2017-07-15] MEDS ORDERED: Mouth Piece, Nicotine* 1 EACH CARTRIDGE ONE (23:10)
[2017-07-15] MEDS ORDERED: Acetaminophen TAB* 325 MG PO PRN (23:36)
[2017-07-15] MEDS ORDERED: Al Hydrox/Mg Hydrox/Simet LIQ* 30 ML UDC PO PRN (23:36)
[2017-07-15] MEDS ORDERED: Nicotine Inhaler* 10 MG AMP INH PRN (23:36)
[2017-07-15] MEDS ORDERED: Mouth Piece, Nicotine* 1 EACH CARTRIDGE INH SCH (23:36)
[2017-07-16] MEDS: hydrOXYzine HCL TAB* 25 MG PO PRN ×3 (01:23→17:18)
[2017-07-16] MEDS: Nicotine PATCH 21 MG/24 HR* PATCH TRANSDERM SCH (08:31)
[2017-07-16] MEDS: Vitamin THERAPEUTIC TAB PO SCH (08:32)
[2017-07-16] MEDS: Paliperidone ER TAB* 6 MG TAB.ER PO SCH (08:32)
[2017-07-16] MEDS: Sertraline* 100 MG TAB PO SCH (08:32)
--- NOTE | 2017-07-16 11:49 | PN ---
MHU: Group Therapy Note - Service Type Service Type: 20711 Group Psychotherapy - Cognitive Behavioral Group Therapy ( CBT):Patient attended CBT programming this morning and presented with flat affect that did not vary with discussion. Although responsive to direct prompts to respond to questions, patient did not engage in spontaneous conversation.
--- NOTE | 2017-07-16 16:42 | PN ---
MHU: Group Therapy Note - Service Type Service Type: 20552 Group Psychotherapy - Medication Education Group: Patient was attentive and participatory in group, and remained in good behavioral control. Patient expressed positive insights regarding relevant treatment interventions. Patient stated understanding of material discussed and had appropriate questions.
--- NOTE | 2017-07-16 16:49 | PN ---
MHU: Group Therapy Note - Service Type Service Type: [id number] Group Psychotherapy - Medication Education Group: Patient was attentive and participatory in group, and remained in good behavioral control. Patient expressed positive insights regarding relevant treatment interventions. Patient stated understanding of material discussed and had appropriate questions.
--- NOTE | 2017-07-16 17:00 | HP ---
PSYCHIATRIC HISTORY AND PHYSICAL: DATE OF ADMISSION: 07/16/17 JUSTIFICATION FOR ADMISSION: The patient is in need of 24-hour supervision and care secondary to suicidal ideations. CHIEF COMPLAINT: "I was thinking the people were talking about me." HISTORY OF PRESENT ILLNESS: The patient is a 42-year-old white female with a history of schizoaffective disorder who was brought in on a voluntary basis due to symptoms of suicidal ideations, anxiety, and paranoia secondary to nonadherence with injectable antipsychotic medications. The patient's story is that she did not go [facility] on 06/24/17 as scheduled. She stated that she wanted to see how long it would take her to become symptomatic. Later when she did become symptomatic, she went into the clinic and got her injection late, which was on 07/10/17. She has also been taking oral Invega to supplement this. Unfortunately, she started experiencing suicidal thoughts, feeling unsafe at home. She was paranoid of both her family and coworkers. The patient was pleasant, but looks scared, often crying. Since admission, we have observed her appearing to be frightened, paranoid, although she tells me when I meet her that she no longer feels the people are talking about her. She was experiencing mild auditory hallucinations leading up to this hospitalization, but denies them currently. Her , Omar, is highly supportive. PAST PSYCHIATRIC HISTORY: The patient has 3 previous psychiatric hospitalizations, the most recent being in July 2016 under the service of Dr. Mumtaz Snyder. The first was in July [address] Piter Alvarenga. She is an outpatient at [facility] where she sees Dr. Sebastien Bell. She has no known history of suicidal behavior, self-harm or violence. Her standing diagnosis appears to be schizoaffective disorder. PAST MEDICAL HISTORY: Significant for obesity and hypertension. MEDICATIONS: Current outpatient medications: 1. Sertraline 100 mg p.o. daily. 2. Paliperidone 234 mg IM every four weeks. She is also on an oral paliperidone taper currently at 6 mg daily, but going to 3 mg in 2 days. It is to be discontinued 1 week thereafter. ALLERGIES: She has no known drug allergies. FAMILY PSYCHIATRIC HISTORY: She has a brother with alcohol dependence and a suicide attempt. Father had alcohol dependence. Maternal aunt had alcohol dependence. No other history of suicidal behavior. SUBSTANCE USE HISTORY: She denies current use of alcohol or drugs, but does have a history of half a pack of cigarettes per day. SOCIAL HISTORY: She grew up in [place], [place], and was raised by both of her parents. Her father . She has a brother and a sister. She left school in 12th grade, but later got a GED and trained in the community college. 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 She has been with her for about 21 years. She has a 23-year-old son from a previous relationship. She and her have children ages 17 and 20. Her brother has been involved in her life and lives near by. REVIEW OF SYSTEMS: The patient denies headache, double vision. She denies sore throat, cough, chest pain, difficulty breathing. She denies abdominal pain , nausea, vomiting, diarrhea, or constipation. She denies difficulty ambulating , rashes, fevers, changes in weight, or enlarged lymph nodes. PHYSICAL EXAMINATION VITAL SIGNS: Blood pressure 113/65, heart rate 76, temperature 98.0 degrees Fahrenheit, respiratory rate is 16 breaths per minute, and oxygen saturations are 97% on room air. HEENT: Head is normocephalic, atraumatic. NECK: Supple. CHEST: Clear to auscultation bilaterally. CARDIAC: Reveals normal heart sounds. ABDOMEN: Soft, obese, and nontender. MUSCULOSKELETAL: Reveals no sign of edema. NEUROLOGIC: She is grossly intact with no focal deficits. SKIN: Warm and dry. LABORATORY DATA: CBC is within normal limits as is her complete metabolic panel with the exception of elevated glucose of 123. We checked her metabolic labs. Hemoglobin A1c is 5.7. Cholesterol 186, triglycerides 71, LDL cholesterol 132, HDL cholesterol of 39.5. TSH is normal at 0.81. Urinalysis is significant for positive nitrites, positive leukocyte esterases, positive white blood cells, red blood cells, 3+ bacteria. Urine drug screen was negative for all substances tested. MENTAL STATUS EXAM: The patient is a friendly overweight white female, who is clean, well groomed, makes good eye contact. It is easy to establish a rapport with her. She does appear to be slightly paranoid. Mood is anxious with a somewhat blunted affect. Thought process is linear and goal directed. Thought content is significant for her desire to come into the hospital for a few days to get well. She denies suicidal ideations currently, although she was recently experiencing these at home. She denies homicidality. She does endorse recent auditory hallucinations, but denies visual hallucinations. Insight and judgement are fair given her willingness to come in to receive treatment. Cognitively, she is awake and alert with what would appear to be an average intellect. DIAGNOSES: [place] I: Schizoaffective disorder, depressed type. [place] II: Deferred. [place] III: Obesity, hypertension, acute urinary tract infection. [place] IV: Moderate primary support stressors. [place] V: At this time is 40. IMPRESSION: The patient is a 42-year-old white female with a history of schizoaffective disorder who apparently became nonadherent with her outpatient injectable antipsychotic. When she started becoming asymptomatic, she changed course and got a late dose of Invega Sustenna. However, she is still symptomatic at this time. We feel that she is justified for admission given the fact that she continues to have transient suicidal thoughts. PLAN: The patient is admitted to the adult behavioral health unit where she is placed on q.15-minute checks for her own safety. Continue Invega therapy; having already received a dose of 234 mg on 07/10/17, we are tapering her off oral paliperidone 6 mg currently, but going down to 3 mg and then discontinuing after a week. While she is here, she is certainly encouraged to avail herself of all milieu activities. We will be making sure that she has followup treatment in place at the [facility] at her time of discharge from our facility. We will be treating her urinary tract infection with a trial of ciprofloxacin 500 mg twice daily. [id number]/[facility] #: [id number] TASIA
[2017-07-16] MEDS: Nicotine Patch Removal NOTE PATCH OFF SCH (21:37)
[2017-07-16] MEDS: Ciprofloxacin TAB* 500 MG PO SCH (21:37)
[2017-07-17] MEDS: Paliperidone ER TAB* 6 MG TAB.ER PO SCH (08:25)
[2017-07-17] MEDS: Ciprofloxacin TAB* 500 MG PO SCH ×2 (08:25→20:46)
[2017-07-17] MEDS: Vitamin THERAPEUTIC TAB PO SCH (08:25)
[2017-07-17] MEDS: Nicotine PATCH 21 MG/24 HR* PATCH TRANSDERM SCH (08:25)
[2017-07-17] MEDS: Sertraline* 100 MG TAB PO SCH (08:25)
--- NOTE | 2017-07-17 11:43 | PN ---
MHU: Group Therapy Note - Service Type Service Type: [id number] Group Psychotherapy - Cognitive Behavioral Group Therapy ( CBT):Patient was attentive and participatory in CBT programming this morning, and remained in good behavioral control. Patient expressed positive insights regarding relevant treatment interventions and goals.
--- NOTE | 2017-07-17 12:44 | PN ---
Subjective - Subjective Date of Service: 07/17/17 Service Type: 09040 Hosp care 25 min moderate complexity Subjective: Kristie was tearful today. She's upset about her job and fearful that she will lose it. She notes that her performance and attendance were both poor, even before she intentionally skipped her monthly paliperidone injection in June of this year. "I get anxious when I'm there and it affects how I do. I'm always afraid that I'll lose it. That I'll snap from my illness and hurt the kids." Kristie is reminded that she has no history of violence, particularly none towards children. We discuss the cognitive technique of speaking back to self-limiting thoughts. She is open to the idea of intensifying her outpatient treatment by joining the [facility] program at [facility]. She denies SI or AH but endorses psychotic experiences such as ideas of reference in which she believes others on the unit are talking about her. She is tolerating her medications well. Objective - Appearance Appearance: Obese Dysmorphic Features: No Hygiene: Normal Grooming: Well Kept - Behavior Psychomotor Activities: Normal Exhibits Abnormal Movement: No - Attitude and Relatedness Attitude and Relatedness: Cooperative Eye Contact: Good - Speech Quality: Unpressured Latencies: Normal Quantity: Appropriate - Mood Patient's Decription of Mood: "Anxious" - Affect Observed Affect: Tearful Affect Consistent with: Dysphoria - Thought Process Patient's Thought Process: Coherent Thought Content: Yes Paranoid Ideation, No Passive Wish, No Suicidal Planning, No Homicidal Ideation - Sensorium Experiencing Hallucinations: No, Sensorium is Clear Type of Hallucinations: Visual: No, Auditory: No, Command: No - Level of Consciousness Level of Consciousness: Alert Orientation: Yes Intact, Yes Orientated to Time, Yes Orientated to Place, Yes Orientated to Person - Impulse Control Impulse Control: Tenuous - Insight and Judgement Insight and Judgement: Fair - Group Participation Particating in Group Activities: Yes - Medication Management Medication Management Adherence: Yes Assessment - Assessment Merits Inpatient Hospitalization: For Immediate Safety, For Stabilization Inpatient DSM-V Dx: F25.1 Clinical Impression: 42 y.o. , white female with a history of schizoaffective DO, depressed type, brought in by family due to several weeks of decreased social and occupational functioning, paranoia, anxiety, depression, AH and SI without plan. The patient missed her monthly paliperidone injection in mid-June, and resumed this at the clinic on July 10, however, she remained symptomatic leading up to admission. Plan - Plan Treatment Plan: Name: KRISTIE SEGOVIA Birthdate: 1975 [id number] She is improving on a regimen of paliperidone Sustena 234mg IM q4wks (next August 07, 2017), oral paliperidone 3mg PO qday and sertraline 100mg PO qday. Continue inpatient treatment. Continued Medication Management: Continue Outpt Medication Medications: Current Medications Acetaminophen (Tylenol Tab*) 650 mg PO Q4H PRN PRN Reason: PAIN or TEMP > 101 F Al Hydrox/Mg Hydrox/Simethicone (Maalox Plus*) 30 ml PO Q4H PRN PRN Reason: INDIGESTION Ciprofloxacin (Cipro Tab*) 500 mg PO Q12HR [facility] Last Admin: 07/17/17 08:25 Dose: 500 mg Device (Nicotine Mouth Piece*) 1 each INH .CARTRIDGE [facility] Hydroxyzine HCl (Atarax Tab*) 25 mg PO Q4H PRN PRN Reason: ANXIETY Last Admin: 07/16/17 17:18 Dose: 25 mg Multivitamins (Theragran Tab*) 1 tab PO DAILY [facility] Last Admin: 07/17/17 08:25 Dose: 1 tab Nicotine (Nicotine Inhaler*) 10 mg INH Q2H PRN PRN Reason: CRAVING Nicotine (Nicotine Patch 21 Mg/24 Hr*) 1 patch TRANSDERM DAILY [facility] Last Admin: 07/17/17 08:25 Dose: 1 patch Paliperidone (Invega Er Tab*) 3 mg PO DAILY [facility] Stop: 07/24/17 09:01 Pharmacy Profile Note (Nicotine Patch Removal Note*) 1 note PATCH OFF 2100 [facility] Last Admin: 07/16/17 21:37 Dose: 1 note Sertraline HCl (Zoloft*) 100 mg PO QAM [facility] Last Admin: 07/17/17 08:25 Dose: 100 mg - Discharge Plan Discharge Plan: Inpatient Hospitalization
[2017-07-17] MEDS: Nicotine Patch Removal NOTE PATCH OFF SCH (20:46)
[2017-07-18] MEDS: Vitamin THERAPEUTIC TAB PO SCH (08:45)
[2017-07-18] MEDS: Paliperidone ER TAB* 3 MG TAB.ER PO SCH (08:46)
[2017-07-18] MEDS: Ciprofloxacin TAB* 500 MG PO SCH ×2 (08:46→20:00)
[2017-07-18] MEDS: Nicotine PATCH 21 MG/24 HR* PATCH TRANSDERM SCH (08:46)
[2017-07-18] MEDS: Sertraline* 100 MG TAB PO SCH (08:46)
[2017-07-18] MEDS: hydrOXYzine HCL TAB* 25 MG PO PRN ×2 (15:49→19:58)
[2017-07-18] MEDS: Nicotine Patch Removal NOTE PATCH OFF SCH (19:59)
[2017-07-19] MEDS: Ciprofloxacin TAB* 500 MG PO SCH ×2 (08:39→20:44)
[2017-07-19] MEDS: Sertraline* 100 MG TAB PO SCH (08:39)
[2017-07-19] MEDS: Vitamin THERAPEUTIC TAB PO SCH (08:39)
[2017-07-19] MEDS: Paliperidone ER TAB* 3 MG TAB.ER PO SCH (08:40)
[2017-07-19] MEDS: Nicotine PATCH 21 MG/24 HR* PATCH TRANSDERM SCH (08:40)
[2017-07-19] MEDS: Nicotine Patch Removal NOTE PATCH OFF SCH (20:44)
--- NOTE | 2017-07-19 22:46 | PN ---
Subjective - Subjective Date of Service: 07/19/17 Service Type: 04195 Hosp care 15 min low complexity Subjective: Kristie is sad and tearful during the assessment. Says she continues to feel depressed and discouraged althoughher psychosis has resolver. Her meds are helping and has no side effects although she looks stiff. Objective - Appearance Appearance: Obese Dysmorphic Features: No Hygiene: Normal Grooming: Well Kept - Behavior Psychomotor Activities: Normal Exhibits Abnormal Movement: No - Attitude and Relatedness Attitude and Relatedness: Appropriate Eye Contact: Good - Speech Quality: Unpressured Latencies: Normal Quantity: Appropriate - Mood Patient's Decription of Mood: "Sad" - Affect Observed Affect: Tearful Affect Consistent with: Dysphoria - Thought Process Patient's Thought Process: Coherent, Goal Directed Thought Content: No Passive Wish, No Suicidal Planning, No Homicidal Ideation, No Paranoid Ideation - Sensorium Experiencing Hallucinations: No, Sensorium is Clear Type of Hallucinations: Visual: No, Auditory: No, Command: No - Level of Consciousness Level of Consciousness: Alert Orientation: Yes Intact, Yes Orientated to Time, Yes Orientated to Place, Yes Orientated to Person - Impulse Control Impulse Control: Intact - Insight and Judgement Insight and Judgement: Fair - Group Participation Particating in Group Activities: Yes - Medication Management Medication Management Adherence: Yes Assessment - Assessment Merits Inpatient Hospitalization: For Immediate Safety, For Stabilization, For Discharge Planning Inpatient DSM-V Dx: F25.1 Plan - Plan Treatment Plan: Name: KRISTIE SEGOVIA Birthdate: 1975 [id number] Continued Medication Management: Continue Outpt Medication Medications: Current Medications Acetaminophen (Tylenol Tab*) 650 mg PO Q4H PRN PRN Reason: PAIN or TEMP > 101 F Al Hydrox/Mg Hydrox/Simethicone (Maalox Plus*) 30 ml PO Q4H PRN PRN Reason: INDIGESTION Ciprofloxacin (Cipro Tab*) 500 mg PO Q12HR [facility] Last Admin: 07/19/17 20:44 Dose: 500 mg Device (Nicotine Mouth Piece*) 1 each INH .[facility] Hydroxyzine HCl (Atarax Tab*) 25 mg PO Q4H PRN PRN Reason: ANXIETY Last Admin: 07/18/17 19:58 Dose: 25 mg Multivitamins (Theragran Tab*) 1 tab PO DAILY [facility] Last Admin: 07/19/17 08:39 Dose: 1 tab Nicotine (Nicotine Inhaler*) 10 mg INH Q2H PRN PRN Reason: CRAVING Nicotine (Nicotine Patch 21 Mg/24 Hr*) 1 patch TRANSDERM DAILY [facility] Last Admin: 07/19/17 08:40 Dose: 1 patch Paliperidone (Invega Er Tab*) 3 mg PO DAILY [facility] Stop: 07/24/17 09:01 Last Admin: 07/19/17 08:40 Dose: 3 mg Pharmacy Profile Note (Nicotine Patch Removal Note*) 1 note PATCH OFF 2099 [facility] Last Admin: 07/19/17 20:44 Dose: 1 note Sertraline HCl (Zoloft*) 100 mg PO QAM [facility] Last Admin: 07/19/17 08:39 Dose: 100 mg - Discharge Plan Discharge Plan: Outpatient Follow Up Outpatient Program: [facility]
[2017-07-20] MEDS: Nicotine PATCH 21 MG/24 HR* PATCH TRANSDERM SCH (09:26)
[2017-07-20] MEDS: Ciprofloxacin TAB* 500 MG PO SCH ×2 (09:26→21:35)
[2017-07-20] MEDS: Sertraline* 100 MG TAB PO SCH (09:26)
[2017-07-20] MEDS: Vitamin THERAPEUTIC TAB PO SCH (09:26)
[2017-07-20] MEDS: Paliperidone ER TAB* 3 MG TAB.ER PO SCH (09:26)
--- NOTE | 2017-07-20 11:42 | PN ---
MHU: Group Therapy Note - Service Type Service Type: [id number] Group Psychotherapy - Cognitive Behavioral Group Therapy ( CBT):Patient was attentive and participatory in CBT programming this morning, and remained in good behavioral control. Patient expressed positive insights regarding relevant treatment interventions and goals.
[2017-07-20] MEDS ORDERED: Paliperidone SUSTENNA* 156 MG/1 ML IM ONE (12:53)
--- NOTE | 2017-07-20 12:58 | PN ---
Subjective - Subjective Date of Service: 07/20/17 Service Type: 46117 Hosp care 15 min low complexity Subjective: Kristie had been slated for discharge this morning, however, she becomes tearful and upset in the milieu, feeling that other patients are talking about her. Her , Omar, is here and disagrees with the discharge plan, feeling she needs more time. She is agreeable to receiving a 156mg booster dose of IM paliperidone Sustenna. She denies SI or HI. Objective - Appearance Appearance: Obese Dysmorphic Features: No Hygiene: Normal Grooming: Fairly Well Kept - Behavior Psychomotor Activities: Normal Exhibits Abnormal Movement: No - Attitude and Relatedness Attitude and Relatedness: Cooperative Eye Contact: Fair - Speech Quality: Unpressured Latencies: Normal Quantity: Appropriate - Mood Patient's Decription of Mood: "Terrible" - Affect Observed Affect: Tearful Affect Consistent with: Dysphoria - Thought Process Patient's Thought Process: Coherent Thought Content: Yes Paranoid Ideation, No Passive Wish, No Suicidal Planning, No Homicidal Ideation - Sensorium Experiencing Hallucinations: No, Sensorium is Clear Type of Hallucinations: Visual: No, Auditory: No, Command: No - Level of Consciousness Level of Consciousness: Alert Orientation: Yes Intact, Yes Orientated to Time, Yes Orientated to Place, Yes Orientated to Person - Impulse Control Impulse Control: Tenuous - Insight and Judgement Insight and Judgement: Fair - Group Participation Particating in Group Activities: Yes - Medication Management Medication Management Adherence: Yes Assessment - Assessment Merits Inpatient Hospitalization: For Immediate Safety, For Stabilization Inpatient DSM-V Dx: F25.1 Clinical Impression: 42 y.o. , white female with a history of schizoaffective DO, depressed type, brought in by family due to several weeks of decreased social and occupational functioning, paranoia, anxiety, depression, AH and SI without plan. The patient missed her monthly paliperidone injection in mid-June, and resumed this at the clinic on July 10, however, she remained symptomatic leading up to admission. Plan - Plan Treatment Plan: Name: KRISTIE SEGOVIA Birthdate: 1975 [id number] The patient's psychosis has not resolved on a regimen of paliperidone Sustena 234mg IM q4wks (next August 07, 2017), oral paliperidone 3mg PO qday and sertraline 100mg PO qday. We will discontinue the oral supplementation and give her a booster injection of paliperidone Sustenna 156mg IM times one now. Delay d/c to home for now. Continue inpatient treatment. Continued Medication Management: Different Medication Medications: Current Medications Acetaminophen (Tylenol Tab*) 650 mg PO Q4H PRN PRN Reason: PAIN or TEMP > 101 F Al Hydrox/Mg Hydrox/Simethicone (Maalox Plus*) 30 ml PO Q4H PRN PRN Reason: INDIGESTION Ciprofloxacin (Cipro Tab*) 500 mg PO Q12HR [facility] Last Admin: 07/20/17 09:26 Dose: 500 mg Device (Nicotine Mouth Piece*) 1 each INH .CARTRIDGE [facility] Hydroxyzine HCl (Atarax Tab*) 25 mg PO Q4H PRN PRN Reason: ANXIETY Last Admin: 07/18/17 19:58 Dose: 25 mg Multivitamins (Theragran Tab*) 1 tab PO DAILY [facility] Last Admin: 07/20/17 09:26 Dose: 1 tab Nicotine (Nicotine Inhaler*) 10 mg INH Q2H PRN PRN Reason: CRAVING Nicotine (Nicotine Patch 21 Mg/24 Hr*) 1 patch TRANSDERM DAILY [facility] Last Admin: 07/20/17 09:26 Dose: 1 patch Paliperidone (Invega Er Tab*) 3 mg PO DAILY [facility] Stop: 07/24/17 09:01 Last Admin: 07/20/17 09:26 Dose: 3 mg Pharmacy Profile Note (Nicotine Patch Removal Note*) 1 note PATCH OFF 2100 [facility] Last Admin: 07/19/17 20:44 Dose: 1 note Sertraline HCl (Zoloft*) 100 mg PO QAM [facility] Last Admin: 07/20/17 09:26 Dose: 100 mg - Discharge Plan Discharge Plan: Inpatient Hospitalization
[2017-07-20] MEDS: hydrOXYzine HCL TAB* 25 MG PO PRN ×2 (14:33→21:35)
[2017-07-20] MEDS: Nicotine Patch Removal NOTE PATCH OFF SCH (21:17)
[2017-07-21] MEDS: Nicotine PATCH 21 MG/24 HR* PATCH TRANSDERM SCH (08:41)
[2017-07-21] MEDS: Vitamin THERAPEUTIC TAB PO SCH (08:42)
[2017-07-21] MEDS: Sertraline* 100 MG TAB PO SCH (08:42)
[2017-07-21] MEDS: Ciprofloxacin TAB* 500 MG PO SCH ×2 (08:42→20:36)
[2017-07-21] MEDS: hydrOXYzine HCL TAB* 25 MG PO PRN ×2 (11:15→15:25)
--- NOTE | 2017-07-21 15:53 | PN ---
Subjective - Subjective Service Type: 41704 Hosp care 15 min low complexity Subjective: Patient seen by conventional mortgage underwriter due to attending psychiatrist's planned absence. Patient is dysphoric and tearful. She endorses bizarre thoughts about mind control and that others are telling her to walk fast. She states she feels "empty" and that she has a difficult time expressing love to her . She states that she knows that her thoughts are not based in reality. Objective - Appearance Appearance: Obese Dysmorphic Features: Yes Hygiene: Normal Grooming: Well Kept - Behavior Psychomotor Activities: Normal Exhibits Abnormal Movement: No - Attitude and Relatedness Attitude and Relatedness: Cooperative Eye Contact: Good - Speech Quality: Unpressured Latencies: Normal Quantity: Appropriate - Mood Patient's Decription of Mood: "emotional roller coaster" - Affect Observed Affect: Tearful Affect Consistent with: Dysphoria - Thought Process Patient's Thought Process: Disorganized Thought Content: Yes Paranoid Ideation, No Passive Wish, No Suicidal Planning, No Homicidal Ideation - Sensorium Experiencing Hallucinations: No, Sensorium is Clear Type of Hallucinations: Visual: No, Auditory: No, Command: No - Level of Consciousness Level of Consciousness: Alert Orientation: Yes Intact, Yes Orientated to Time, Yes Orientated to Place, Yes Orientated to Person - Impulse Control Impulse Control: Tenuous - Insight and Judgement Insight and Judgement: Good - Group Participation Particating in Group Activities: Yes - Medication Management Medication Management Adherence: Yes Assessment - Assessment Merits Inpatient Hospitalization: For Immediate Safety, Consolidate Improvements , Pending Safe DC Plan Inpatient DSM-V Dx: F25.1 Clinical Impression: 42 y.o. , white female with a history of schizoaffective DO, depressed type, brought in by family due to several weeks of decreased social and occupational functioning, paranoia, anxiety, depression, AH and SI without plan. The patient missed her monthly paliperidone injection in mid-June, and resumed this at the clinic on July 10, however, she remained symptomatic leading up to admission. Plan - Plan Treatment Plan: Name: AUBRIE SEGOVIA Birthdate: 1975 [id number] continue acute intensive psychiatric treatment. patient received Invega sustenna booster yesterday, awaiting response. Continued Medication Management: Continue Outpt Medication Medications: Current Medications Acetaminophen (Tylenol Tab*) 650 mg PO Q4H PRN PRN Reason: PAIN or TEMP > 101 F Al Hydrox/Mg Hydrox/Simethicone (Maalox Plus*) 30 ml PO Q4H PRN PRN Reason: INDIGESTION Ciprofloxacin (Cipro Tab*) 500 mg PO Q12HR [facility] Last Admin: 07/21/17 08:42 Dose: 500 mg Device (Nicotine Mouth Piece*) 1 each INH .CARTRIDGE [facility] Hydroxyzine HCl (Atarax Tab*) 25 mg PO Q4H PRN PRN Reason: ANXIETY Last Admin: 07/21/17 15:25 Dose: 25 mg Multivitamins (Theragran Tab*) 1 tab PO DAILY [facility] Last Admin: 07/21/17 08:42 Dose: 1 tab Nicotine (Nicotine Inhaler*) 10 mg INH Q2H PRN PRN Reason: CRAVING Nicotine (Nicotine Patch 21 Mg/24 Hr*) 1 patch TRANSDERM DAILY [facility] Last Admin: 07/21/17 08:41 Dose: 1 patch Pharmacy Profile Note (Nicotine Patch Removal Note*) 1 note PATCH OFF 2100 [facility] Last Admin: 07/20/17 21:17 Dose: 1 note Sertraline HCl (Zoloft*) 100 mg PO QAM [facility] Last Admin: 07/21/17 08:42 Dose: 100 mg - Discharge Plan Discharge Plan: Outpatient Follow Up Outpatient Program: [facility]
[2017-07-21] MEDS: Nicotine Patch Removal NOTE PATCH OFF SCH (20:36)
[2017-07-22] MEDS: Sertraline* 100 MG TAB PO SCH (09:14)
[2017-07-22] MEDS: Vitamin THERAPEUTIC TAB PO SCH (09:14)
[2017-07-22] MEDS: Nicotine PATCH 21 MG/24 HR* PATCH TRANSDERM SCH (09:15)
[2017-07-22] MEDS: Ciprofloxacin TAB* 500 MG PO SCH (09:15)
--- NOTE | 2017-07-22 13:15 | PN ---
Subjective - Subjective Date of Service: 07/22/17 Service Type: 11539 Hosp care 15 min low complexity Subjective: Kristie is extremely anxious and actually vomited after breakfast this morning, complaining of nausea and emotional distress related to her marriage, work and overall life situation. "What I really want is to be the person I was 10 years ago before my illness started." She is reminded that no one can revert to the person they used to be, nor is this necessarily desirable. I ask for what she wants and what she's committed to working on. "I don't get anything from my job anymore. I want to do something different." We talk more about the [employer] program at [facility], which does vocational services work with consumers. Kristie accepts this. She is agreeable with a family meeting with her , Omar. She denies SI but continues to endorse ideas of reference, that others on the unit are talking about her. Objective - Appearance Appearance: Obese Dysmorphic Features: No Hygiene: Normal Grooming: Fairly Well Kept - Behavior Psychomotor Activities: Normal Exhibits Abnormal Movement: No - Attitude and Relatedness Attitude and Relatedness: Cooperative Eye Contact: Fair - Speech Quality: Unpressured Latencies: Normal Quantity: Appropriate - Mood Patient's Decription of Mood: "Terrible" - Affect Observed Affect: Tearful Affect Consistent with: Dysphoria - Thought Process Patient's Thought Process: Coherent Thought Content: Yes Paranoid Ideation, No Passive Wish, No Suicidal Planning, No Homicidal Ideation - Sensorium Experiencing Hallucinations: No, Sensorium is Clear Type of Hallucinations: Visual: No, Auditory: No, Command: No - Level of Consciousness Level of Consciousness: Alert Orientation: Yes Intact, Yes Orientated to Time, Yes Orientated to Place, Yes Orientated to Person - Impulse Control Impulse Control: Poor - Insight and Judgement Insight and Judgement: Impaired - Group Participation Particating in Group Activities: Yes - Medication Management Medication Management Adherence: Yes Assessment - Assessment Merits Inpatient Hospitalization: For Immediate Safety, For Stabilization Inpatient DSM-V Dx: F25.1 Clinical Impression: 42 y.o. , white female with a history of schizoaffective DO, depressed type, brought in by family due to several weeks of decreased social and occupational functioning, paranoia, anxiety, depression, AH and SI without plan. The patient missed her monthly paliperidone injection in mid-June, and resumed this at the clinic on July 10, however, she remained symptomatic leading up to admission. Plan - Plan Treatment Plan: Name: KRISTIE SEGOVIA Birthdate: 1975 [id number] The patient's psychosis has not resolved on a regimen of paliperidone Sustena 234mg IM q4wks (next August 07, 2017), and sertraline 100mg PO qday. We will increase sertraline to 150mg daily. Will pursue a family meeting with her , Omar. Delay d/c to home for now. Patient's UTI is resolved. Will discontinue cipro. Continue inpatient treatment. Continued Medication Management: Different Medication Medications: Current Medications Acetaminophen (Tylenol Tab*) 650 mg PO Q4H PRN PRN Reason: PAIN or TEMP > 101 F Al Hydrox/Mg Hydrox/Simethicone (Maalox Plus*) 30 ml PO Q4H PRN PRN Reason: INDIGESTION Device (Nicotine Mouth Piece*) 1 each INH .CARTRIDGE [facility] Hydroxyzine HCl (Atarax Tab*) 25 mg PO Q4H PRN PRN Reason: ANXIETY Last Admin: 07/21/17 15:25 Dose: 25 mg Multivitamins (Theragran Tab*) 1 tab PO DAILY [facility] Last Admin: 07/22/17 09:14 Dose: 1 tab Nicotine (Nicotine Inhaler*) 10 mg INH Q2H PRN PRN Reason: CRAVING Nicotine (Nicotine Patch 21 Mg/24 Hr*) 1 patch TRANSDERM DAILY [facility] Last Admin: 07/22/17 09:15 Dose: 1 patch Pharmacy Profile Note (Nicotine Patch Removal Note*) 1 note PATCH OFF 2100 [facility] Last Admin: 07/21/17 20:36 Dose: 1 note Sertraline HCl (Zoloft*) 150 mg PO QAM [facility] - Discharge Plan Discharge Plan: Inpatient Hospitalization
[2017-07-22] MEDS: Nicotine Patch Removal NOTE PATCH OFF SCH (20:46)
[2017-07-23] MEDS: Nicotine PATCH 21 MG/24 HR* PATCH TRANSDERM SCH (08:55)
[2017-07-23] MEDS: Sertraline* 50 MG TAB PO SCH (08:56)
[2017-07-23] MEDS: Vitamin THERAPEUTIC TAB PO SCH (08:56)
--- NOTE | 2017-07-23 11:50 | PN ---
MHU: Group Therapy Note - Service Type Service Type: [id number] Group Psychotherapy - Cognitive Behavioral Group Therapy ( CBT):Patient was attentive and participatory in CBT programming this morning, and remained in good behavioral control. Patient expressed positive insights regarding relevant treatment interventions and goals. Kristie was tearful when discussing pressures she feels about "having to be perfect" in the context of discussion of self identity. She responded positively to ventilation of emotion and redirection back on topic.
[2017-07-23] MEDS: Nicotine Patch Removal NOTE PATCH OFF SCH (20:43)
[2017-07-24 07:55] VITALS: BP 128/70
[2017-07-24] MEDS: Sertraline* 50 MG TAB PO SCH (08:32)
[2017-07-24] MEDS: Vitamin THERAPEUTIC TAB PO SCH (08:33)
[2017-07-24] MEDS: Nicotine PATCH 21 MG/24 HR* PATCH TRANSDERM SCH (08:33)
--- NOTE | 2017-07-24 11:51 | PN ---
MHU: Group Therapy Note - Service Type Service Type: [id number] Group Psychotherapy - Cognitive Behavioral Group Therapy ( CBT):Patient was attentive and participatory in CBT programming this morning, and remained in good behavioral control. Patient expressed positive insights regarding relevant treatment interventions and goals.
--- NOTE | 2017-07-24 15:19 | DS ---
DATE OF ADMISSION: 07/15/2017. DATE OF DISCHARGE: 07/24/2017. DISCHARGE DIAGNOSES: AXIS I: Schizoaffective disorder, depressed type. AXIS II: Deferred. AXIS III: Obesity, acute urinary tract infection, hypertension. AXIS IV: Moderate, primary support and occupational stressors. AXIS V: At the time of admission was 40 and at the time of discharge is 60. CONDITION AT THE TIME OF DISCHARGE: Stable. The patient is denying suicidal or homicidal ideation. She denies auditory hallucinations. Her paranoid thoughts and ideas of reference have resolved. Sh dot is no longer feeling that other people are talking about her. Her anxiety is greatly diminished an d she is tolerating the changes in her meds well, most notably the increase in Sertraline from 100 to 150 mg daily. The patient understands that she can no longer risk going off her psychiatric medicat ions. She further understands that she has her next dose of injectable long-acting Invega Sustenna d ue to August 07. Her , Omar, has attended a family meeting on the date of discharge . He feels that she is back to her baseline and is comfortable taking her home. They are mutually c omfortable with the discharge plan for her to follow-up on July 27 with her therapist Soledad Del Cid at [facility]. In addition, the patient is agreeable with more i ntensive programming at [facility], namely through the [employer] program where she can get group psychotherapy as well as vocational support. The patient has been granted a letter relievi ng her of work responsibilities due to medical necessity and when she sees Dr. 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 MENTAL STATUS EXAM: The patient is an overweight white female who is clean, well- groomed, and makes good eye contact. It is easy to establish a rapport with her. Her speech has a normal rate, tone, a nd volume. Mood is euthymic with a full affect. Thought process is linear and goal-directed. Thoug ht content is significant for her desire to be discharged from the hospital. She denies suicidal or homicidal ideations. She denies auditory or visual hallucinations. There is no further evidence of paranoid thinking. Insight and judgment are fair given her [facility]. Cognitively, she is awake and alert with what would appear to be an average intellect. LABORATORY DATA: We did check her metabolic studies on the 2017. At that time, hemoglobin A1 c was elevated at 5.7 percent, triglycerides 71, cholesterol 186, LDL cholesterol 132, HDL cholestero l 39.5. DISCHARGE INSTRUCTIONS TO THE PATIENT: A. Medications: The patient is to take nicotine replacement patch, 21 mg transdermally once daily. She takes Zoloft 150 mg p.o. daily, Atarax 25 mg as needed every 4 hours for anxiety, a multivitamin . She takes Invega Sustenna 234 mg IM every 28 days, next injection is due to 08/07/2017. B. Diet: Regular. C. Activities: As tolerated. The patient is a smoker, but is in the action stage of quitting. For this reason, she has requested nicotine replacement therapy. We have also granted her the [facility] Smokers' Quitline at . There are no studies pending at the time of discharge. D. Follow-up care: The patient will follow-up with [facility] where she w ill see Abbie Del Cid, her psychotherapist, on July 27 and she will see psychiatrist Dr. Josias Bell on July 30. Her next injection of Invega is on the 07 of August. In [facility], she will be working with the [facility] program for group therapy and vocational support. E. Substance abuse follow-up: Nonapplicable. HOSPITAL COURSE - PART A: Reason for admission: The patient is a 42-year-old, , white female with a history of schizoaffective disorder who was brought in on a voluntary basis due to symptoms of suicidal ideations, anxiety, and paranoia secondary to nonadherence with injectable antipsychotic me dication. The patient's story is that she did not go to [facility] on the 24 of June as scheduled and at that time missed her next dose of Invega Sustenna. She stated t hat she wanted to see how long it would take her to become symptomatic. Later when she did become sy mptomatic, she went back to the clinic and got her injection late, which was the July. Rather than giving her a booster dose one week later, they tried giving her additional oral Invega as a supplement. Unfortunately she started experiencing suicidal thoughts and feeling unsafe at home. She was paranoid of both her family and her coworkers. The patient was pleasant, but looks scared, often crying. Since admission, we had observed her appearing to be frightened, paranoid, and feeling as though people were talking about her. She did experience mild auditory hallucinations leading up to this hospitalization. Her was highly supportive. HOSPITAL COURSE - PART B: Psychiatric treatment rendered: The patient was admitted to the [facility] where she was placed on q.15 minute checks for her own safety. We continued her o n the adjunctive oral Invega therapy, initially at 6 mg and then decreased to 3 mg. Initially she wa s doing better and we had some discussions of discharging her on the 20 of July; however, on the d ate of discharge she became extremely anxious, feeling as though other peers were talking about her. At that time, we got rid of oral Invega and replaced it with a booster dose of Invega Sustenna 156 m g which she tolerated well. We are still recommending that she follow through with her next schedule d Invega shot which will be on the 07 of August. Because of increased anxiety, we bumped up her Ser traline from 100 to 150 mg which seemed to benefit greatly. She had many concerns about her ability to function, particularly at work. She was reassured and it was strongly recommended that she work w ith one of the vocational specialist through the [employer] program which she agreed to. Her was p art of the treatment planning and actually came for a therapeutic family meeting on the date of disch arge. He is very much in support of her discharge home, feeling as though she has improved and would be well suited with outpatient services. Kristie was excellent to work with, was keen on attending groups, was expressive, eager to get well, eager to improve. We feel that she can be safely treated in a less restrictive setting at this time. Furthermore, the patient had a urinary tract infection wh ich was treated with p.o. Ciprofloxacin. This has now resolved and the patient requires no further a ntibiotic therapy. [id number]/[facility] #: [id number]
== END 2017-07-24 13:45 | disposition home or self-care (01) | DRG 750 ==
LOC: ED 17:46 → BSU 22:18
PROVIDERS: ADMIT Psychiatry & Neurology Psychiatry; ATTEND Psychiatry & Neurology Psychiatry
PROC: GZHZZZZ Group Psychotherapy (ICD-10-PCS; principal; 2017-07-16)
DX: F25.1 Schizoaffective disorder, depressive type (principal); R45.851 Suicidal ideations; Z68.42 Body mass index [BMI] 45.0-49.9, adult; N39.0 Urinary tract infection, site not specified; I10 Essential (primary) hypertension; J45.909 Unspecified asthma, uncomplicated; F41.9 Anxiety disorder, unspecified; F32.9 Major depressive disorder, single episode, unspecified; F43.10 Post-traumatic stress disorder, unspecified; E66.9 Obesity, unspecified; F17.210 Nicotine dependence, cigarettes, uncomplicated; Z91.14 Patient's other noncompliance with medication regimen; Z81.1 Family history of alcohol abuse and dependence; Z82.49 Family history of ischemic heart disease and other diseases of the circulatory system; Z81.8 Family history of other mental and behavioral disorders
CPT/HCPCS: 36415; 80053; 80061; 80307; 80320; 80329; 81003; 81015; 83036; 84443; 85025; 87077; 87086; 87186; 99284; A9270-GY; G0480; J2426

== ENCOUNTER 2017-10-28 12:35 | Inpatient (IN) | payer BC ==
[2017-10-28 13:28] LABS: ABS Basophils 0 10^3/ul (0-0.2); ABS Eosinophils 0.1 10^3/ul (0-0.6); ABS Lymphocytes 1.1 10^3/ul (1.0-4.8); ABS Monocytes 0.5 10^3/ul (0-0.8); ABS Neutrophils 5.8 10^3/ul (1.5-7.7); ABS Nucleated RBC 0 10^3/ul; Eosinophil % 0.8 % (0-6); Hematocrit 42 % (35-47); Hemoglobin 14.8 g/dl (12.0-16.0); Lymphocyte % 14.8 % (25-47); Mean Corpuscular HGB Conc 35 g/dl (31-36); Mean Corpuscular Hemoglobin 32 pg (27-31); Mean Corpuscular Volume 92 fL (80-97); Mean Platelet Volume 9.3 um3 (7.4-10.4); Nucleated Red Blood Cells % 0.1; Platelet Count 246 10^3/ul (150-450); Red Blood Count 4.63 10^6/ul (4.00-5.40); Red Cell Distribution Width 14 % (10.5-15); White Blood Count 7.4 10^3/ul (3.5-10.8)
[2017-10-28 13:39] LABS: EGFR Non-African American 93.3 (>60)
[2017-10-28 13:43] LABS: Urine Appearance Clear; Urine Blood Negative (Negative); Urine Color Yellow; Urine Ketones Trace (Negative); Urine Protein Negative (Negative); Urine Specific Gravity 1.013 (1.010-1.030); Urine Urobilinogen Negative (Negative)
--- NOTE | 2017-10-28 18:26 | ED ---
John Valencia Angela, scribed for Magi Pandya MD on 10/28/17 at 1335 . Psychiatric Complaint - HPI Summary HPI Summary: This pt is a 42 y/o female presenting to [facility] for increased depression and SI since yesterday. Pt reports she has been having "bad thoughts" of harming herself. She states she was feeling suicidal and had a plan to drown herself in the pond today. Pt currently notes she is feeling better after speaking to her counselor today. She reports recent stressor of being asked to take a leave of absence from work due to not performing well. 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 Denies HI thoughts/plan, auditory hallucinations. Pt denies prior suicide attempts, although she has been admitted in the past for mental health. PMHx includes bipolar disorder, depression (for the past 2 years), schizophrenia. Pt is currently on medications and confirms she has been taking them as prescribed. Her psychiatrist is Dr. Bell. She reports she came in contact with marijuana but she did not smoke it. Pt has 3 children. - History Of Current Complaint Chief Complaint: EDMentalHealth Time Seen by Provider: 10/28/17 12:57 Hx Obtained From: Patient Onset/Duration: Lasting Days, Still Present Timing: Days Severity Initially: Severe Severity Currently: Moderate Character: Depressed Aggravating Factor(s): Recent Stress - has been asked to take a leave of absence from work Alleviating Factor(s): Counseling - spoke with counselor Associated Signs And Symptoms: Positive: Confused. Negative: Hallucinating Related History: Positive For: Prior Psychiatric Issues Has Suicidal: Reports: Thoughts, With A Plan. Denies: Has Prior Attempt(s) Has Homicidal: Denies: Thoughts, With A Plan Recent Stressor(s): has been asked to take a leave of absence from work - Allergies/Home Medications Allergies/Adverse Reactions: Allergies Allergy/AdvReac Type Severity Reaction Status Date / Time No Known Allergies Allergy Verified 10/28/17 12:55 Home Medications: Home Medications Calcium Polycarbophil [Fiber Therapy] 625 mg PO DAILY 10/28/17 [History Confirmed 10/28/17] PMH/Surg Hx/FS Hx/Imm Hx Endocrine/Hematology History: Denies: Hx Diabetes Cardiovascular History: Reports: Hx Hypertension Denies: Hx Pacemaker/ICD Respiratory History: Reports: Hx Asthma History: Denies: Hx Renal Disease Sensory History: Denies: Hx Contacts or Glasses, Hx Hearing Aid Opthamlomology History: Denies: Hx Contacts or Glasses Neurological History: Reports: Hx Headaches Psychiatric History: Reports: Hx Anxiety, Hx Depression, Hx Post Traumatic Stress Disorder, Hx Inpatient Treatment, Hx Community Mental Health Tx, Hx Schizophrenia, Hx Bipolar Disorder, Other Psychiatric Issues/Disorders - pt states having a couple of panic attacks Denies: Hx Attention Deficit Hyperactivity Disorder, Hx Eating Disorder, Hx Panic Disorder, Hx Suicide Attempt, Hx of Violent Episodes Against Others, Hx Substance Abuse - Surgical History Surgery Procedure, Year, and Place: , tubal with right tub removed, right ovarian cyst removed Infectious Disease History: No Infectious Disease History: Denies: Traveled Outside the [place] in Last 30 Days - Family History Known Family History: Positive: Hypertension - Mother - Social History Alcohol Use: Occasionally Substance Use Type: Reports: None Smoking Status (MU): Heavy Every Day Tobacco Smoker Type: Cigarettes Review of Systems Negative: Fever, Chills Psychological: Other - SI thoughts/plan Positive: Depressed. Negative: Other - HI thoughts/plan, hallucinations All Other Systems Reviewed And Are Negative: Yes Physical Exam - Summary Physical Exam Summary: GENERAL: Patient is a well developed and nourished female who is lying comfortable in the stretcher. Patient is not in any acute respiratory distress. HEAD AND FACE: Normocephalic EYES: PERRLA, EOMI x 2. EARS: Hearing grossly intact. MOUTH: Oropharynx within normal limits. NECK: Supple, trachea is midline, no adenopathy, no JVD, no carotid bruit. CHEST: Symmetric, no tenderness at palpation LUNGS: Clear to auscultation bilaterally. No wheezing or crackles. CVS: Regular rate and rhythm, S1 and S2 present, no murmurs or gallops appreciated. ABDOMEN: Soft, non-tender. Bowel sounds are normal. No abdominal abnormal pulsations. EXTREMITIES: Full ROM in all major joints, no edema, no cyanosis or clubbing. NEURO: Alert and oriented x 3. No acute neurological deficits. Speech is normal and follows commands. SKIN: Dry and warm PSYCH: depressed affect, linear thought process in content. Positive SI. Triage Information Reviewed: Yes Vital Signs On Initial Exam: Initial Vitals Temp Pulse Resp BP Pulse Ox 97.9 F 88 22 143/97 96 10/28/17 12:51 10/28/17 12:51 10/28/17 12:51 10/28/17 12:51 10/28/17 12:51 Vital Signs Reviewed: Yes Diagnostics - Vital Signs Vital Signs Temp Pulse Resp BP Pulse Ox 10/28/17 12:51 97.9 F 88 22 143/97 96 - Laboratory Lab Results: Lab Results 10/28/17 Range/Units 13:14 WBC 7.4 (3.5-10.8) 10^3/ul RBC 4.63 (4.00-5.40) 10^6/ul Hgb 14.8 (12.0-16.0) g/dl Hct 42 (35-47) % MCV 92 (80-97) fL MCH 32 H (27-31) pg MCHC 35 (31-36) g/dl RDW 14 (10.5-15) % Plt Count 246 (150-450) 10^3/ul MPV 9.3 (7.4-10.4) um3 Neut % (Auto) 77.8 (38-83) % Lymph % (Auto) 14.8 L (25-47) % Cedar % (Auto) 6.1 (0-7) % Eos % (Auto) 0.8 (0-6) % Baso % (Auto) 0.5 (0-2) % Absolute Neuts (auto) 5.8 (1.5-7.7) 10^3/ul Absolute Lymphs (auto) 1.1 (1.0-4.8) 10^3/ul Absolute Monos (auto) 0.5 (0-0.8) 10^3/ul Absolute Eos (auto) 0.1 (0-0.6) 10^3/ul Absolute Basos (auto) 0 (0-0.2) 10^3/ul Absolute Nucleated RBC 0 10^3/ul Nucleated RBC % 0.1 Result Diagrams: 10/28/17 13:14 10/28/17 13:14 Lab Statement: Any lab studies that have been ordered have been reviewed, and results considered in the medical decision making process. Course/Dx - Course Assessment/Plan: Pt was evaluated by the mental health fine arts model and her case was reviewed by Dr. White, psychiatrist. Dr. White recommends admission for the pt. Dr. Shelbi David signed the voluntary admission papers. Pt [facility] be [facility] [place] [facility] on a voluntary status with a diagnosis of depression. - Differential Dx/Clinical Impression Provider Diagnosis: Depression, Mood disorder Discharge - Sign-Out/Discharge Documenting (check all that apply): Discharge/Admit/Transfer - Admit - Discharge Plan Condition: Stable Disposition: [facility]IATRIC [facility]AC[place] The documentation as recorded by the John saab Angela accurately reflects the service I personally performed and the decisions made by , Magi Pandya MD.
[2017-10-28] MEDS ORDERED: Nicotine Inhaler* 10 MG AMP INH PRN (19:17)
[2017-10-28] MEDS ORDERED: Acetaminophen TAB* 325 MG PO PRN (19:17)
[2017-10-28] MEDS ORDERED: Al Hydrox/Mg Hydrox/Simet LIQ* 30 ML UDC PO PRN (19:17)
[2017-10-28] MEDS ORDERED: Mouth Piece, Nicotine* 1 EACH CARTRIDGE INH SCH (19:17)
[2017-10-28] MEDS: Nicotine Patch Removal NOTE PATCH OFF SCH (22:15)
[2017-10-29] MEDS: Vitamin THERAPEUTIC TAB PO SCH (10:14)
[2017-10-29] MEDS: Nicotine PATCH 21 MG/24 HR* PATCH TRANSDERM SCH (10:14)
[2017-10-29] MEDS: Sertraline* 100 MG TAB PO SCH (11:44)
[2017-10-29] MEDS: BuPROPion XL* 150 MG TAB.XL PO SCH (11:44)
--- NOTE | 2017-10-29 12:20 | HP ---
HISTORY AND PHYSICAL: DATE OF ADMISSION: 10/28/17 SUPERVISING PHYSICIAN: Alex Witt MD * (DICTATED BY ALBERTO BOATENG NP ) JUSTIFICATION FOR ADMISSION: The patient is in need of 24-hour supervision and care secondary to suicidal ideation. CHIEF COMPLAINT: "I don't want to go to work anymore because I am not good at it." HISTORY OF PRESENT ILLNESS: The patient is a 42-year-old white female with a history of schizoaffective disorder, who arrives brought in by her on a voluntary status after being told at work she needed to take a leave of absence due to not doing a good job anymore. Kristie has worked at the [employer] for 15 years. She has been told after 14 years that her work has not been up to par and is not perfect as it used to be. She feels like that is because she has been feeling sad and bad about herself and tired. She discussed that since her recent admission, meds have made her feel happier and she is not having any psychotic symptoms, but she is alone a lot as she works the 2:30 p.m. to 11 p.m. shift by herself and she does not sleep enough all the time because she often goes to sleep at 12:30 at night and wakes up at 7:00 in the morning, although her sometimes lets her sleep until 9 :30. She sees her family on the weekends and the early mornings. 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 Her main stressor is not feeling completely supported by her as well as feeling incompetent at work. Her symptoms include sleepiness, decrease in interest in things, guilt about not doing good work, lack of energy, inability to concentrate and suicidal ideation. PAST PSYCHIATRIC HISTORY: She was recently seen here in July under the care of Dr. Alex Witt. Before that, she was seen in July 2016 under the service of Dr. Mumtaz Snyder. The first time was in July [address] Piter Alvarenga. She is in outpatient treatment at [facility] and she sees Dr. Sebastien Bell. She has no known history of suicidal behavior , self-harm or violence, but she is having distinct suicidal ideation at this time and has potential plan for shooting herself or drowning herself. PAST MEDICAL HISTORY: Significant for obesity and hypertension. MEDICATIONS: 1. Sertraline 150 mg p.o. daily. 2. Invega Sustenna 156 every 4 weeks. ALLERGIES: She has no known drug allergies. FAMILY PSYCHIATRIC HISTORY: She has a brother with alcohol dependence and a suicide attempt. Father had alcohol dependence. Maternal aunt had alcohol dependence. No other history of suicidal behavior. SUBSTANCE USE HISTORY: She denies current use of alcohol or drugs. She is a smoker and smokes half a pack a day. SOCIAL HISTORY: She grew up in [place], [place], and was raised by both of her parents. Her father . She has a brother and a sister. She left school in 12th grade, but got a GED and trained at [employer]. 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 She has been with her for about 22 years. She has a 25-year- old named Omar, a 20-year-old named Deniz, and a 17-year-old girl named Hannah. The 17- year-old lives with her, the 20-year-old sometimes couch surfs , and the names of the 25 and the 20-year-old may be mixed up and the oldest lives on his own. REVIEW OF SYSTEMS: The patient reports feeling fatigued. She denies SOB, heat or cold intolerance, chest pain or abdominal pain. She denies neurological symptoms. She denies fevers or changes in weight. PHYSICAL EXAMINATION VITAL SIGNS: On 10/28/17, at 12:51, her temperature was 97.9, her pulse was 88 , respiratory rate was 22, O2 sat was 96%, and blood pressure was 143/97. The blood pressure did reduce this morning to 115/61. For further exam data, please see the emergency department records. LABORATORY DATA: The labs data look very good, only exceptions being her _ slightly high, her lymph percentage is a little low. Chemistries: Her glucose is elevated at 115 and her globulin is raised at 4.4. Her hemoglobin A1c is 5.6. Her lipid panel includes triglycerides at 107, cholesterol 166, LDL cholesterol 112, HDL cholesterol 33.1. MENTAL STATUS EXAM: This is a woman who appears a bit older than her stated age. She is obese, she has long graying hair. She appears to have full range of affect, although she does appear dysphoric. Her grooming is adequate. Her behavior is normal. She is calm and cooperative. Her speech is of a normal rate, tone, and volume. She is dysthymic. She is a little tearful. Her thought processes are normal. She denies psychosis. Her thought content is clear. She is suicidal at this time, thinking about shooting or drowning herself. She is having no hallucinations. Her insight is good. Her judgment is fair. She is alert and oriented x3. Her impulse control is good. DIAGNOSES: [place] I: Schizoaffective disorder. [place] II: Deferred. IMPRESSION: This is a 42-year-old woman who is having social struggles because of her job performance which is decreased in quality, likely due to her depression and unhappiness. In that context, she has decided that she would like to and has chosen 2 potential methods of ending her life. PLAN: The patient is admitted to adult behavioral health unit and placed on q.15- minute checks for her own safety. She is encouraged to participate in supportive milieu, individual, and group therapies. Estimated length of stay is 5 to 7 days. We will titrate medications including increasing Zoloft to 200 and starting Wellbutrin XL at 150 mg and monitor for mood and thought content. Discharge planning will include family involvement and outpatient providers. ALBERTO BOATENG NP [id number]/[facility] #: [id number] TASIA
[2017-10-29] MEDS: Nicotine Patch Removal NOTE PATCH OFF SCH (20:44)
[2017-10-30] MEDS: Vitamin THERAPEUTIC TAB PO SCH (09:38)
[2017-10-30] MEDS: Nicotine PATCH 21 MG/24 HR* PATCH TRANSDERM SCH (09:38)
[2017-10-30] MEDS: Sertraline* 100 MG TAB PO SCH (10:35)
[2017-10-30] MEDS: BuPROPion XL* 150 MG TAB.XL PO SCH (10:36)
--- NOTE | 2017-10-30 15:48 | PN ---
Subjective - Subjective Date of Service: 10/30/17 Service Type: 61247 Hosp care 15 min low complexity Subjective: Kristie is brighter today. 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 She recognizes that her may not understand her need to find a new job type, but she is willing to stick to her choice in the face of his potential displeasure. Objective - Appearance Appearance: Well Developed/Nourished, Obese Dysmorphic Features: No Hygiene: Normal Grooming: Well Kept - Behavior Psychomotor Activities: Normal Exhibits Abnormal Movement: No - Attitude and Relatedness Attitude and Relatedness: Well Related Eye Contact: Good - Speech Quality: Unpressured Latencies: Normal Quantity: Appropriate - Mood Patient's Decription of Mood: "Good" - Affect Observed Affect: Good Affect Consistent with: Euthymia - Thought Process Patient's Thought Process: Coherent, Goal Directed Thought Content: No Passive Wish, No Suicidal Planning, No Homicidal Ideation, No Paranoid Ideation - Sensorium Experiencing Hallucinations: No, Sensorium is Clear Type of Hallucinations: Visual: No, Auditory: No, Command: No - Level of Consciousness Level of Consciousness: Alert Orientation: Yes Intact, Yes Orientated to Time, Yes Orientated to Place, Yes Orientated to Person - Impulse Control Impulse Control: Tenuous - Insight and Judgement Insight and Judgement: Good - Group Participation Particating in Group Activities: Yes - Medication Management Medication Management Adherence: Yes - Additional Observations Comments: Kerris appearance is brighter--she looks doweler and healthy. She is willing to take medications that are new and believes they will be helpful. Assessment - Assessment Merits Inpatient Hospitalization: For Immediate Safety, For Stabilization Inpatient DSM-V Dx: F25.0 Clinical Impression: Kristie is a 42-year-old mother to three nearly adult children and to a man who is becoming less sympathetic to her mental illness. 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 She would also like to be respected by her . 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 This has reduced her stress level considerably and she is now more prepared to return to her home life. Plan - Plan Treatment Plan: Name: KRISTIE SEGOVIA Birthdate: 1975 [id number] Kristie will start new antidepressants and begin to have reduced symptoms in the context of choosing a new job to reduce her stress which appears to also reduce her depressive symptoms. Medications: Current Medications Acetaminophen (Tylenol Tab*) 650 mg PO Q4H PRN PRN Reason: PAIN or TEMP > 101 F Al Hydrox/Mg Hydrox/Simethicone (Maalox Plus*) 30 ml PO Q4H PRN PRN Reason: INDIGESTION Bupropion HCl (Wellbutrin Xl *) 150 mg PO DAILY [facility]; Protocol Last Admin: 10/30/17 10:36 Dose: 150 mg Device (Nicotine Mouth Piece*) 1 each INH .CARTRIDGE [facility] Multivitamins (Theragran Tab*) 1 tab PO DAILY [facility] Last Admin: 10/30/17 09:38 Dose: Not Given Nicotine (Nicotine Inhaler*) 10 mg INH Q2H PRN PRN Reason: CRAVING Nicotine (Nicotine Patch 21 Mg/24 Hr*) 1 patch TRANSDERM DAILY [facility] Last Admin: 10/30/17 09:38 Dose: Not Given Pharmacy Profile Note (Nicotine Patch Removal Note*) 1 note PATCH OFF 2100 [facility] Last Admin: 10/29/17 20:44 Dose: Not Given Sertraline HCl (Zoloft*) 200 mg PO DAILY [facility] Last Admin: 10/30/17 10:35 Dose: 200 mg
[2017-10-30] MEDS: Nicotine Patch Removal NOTE PATCH OFF SCH (22:08)
[2017-10-31] MEDS: Nicotine PATCH 21 MG/24 HR* PATCH TRANSDERM SCH (08:49)
[2017-10-31] MEDS: BuPROPion XL* 150 MG TAB.XL PO SCH (08:50)
[2017-10-31] MEDS: Sertraline* 100 MG TAB PO SCH (08:51)
[2017-10-31] MEDS: Vitamin THERAPEUTIC TAB PO SCH (08:51)
--- NOTE | 2017-10-31 14:47 | PN ---
Subjective - Subjective Date of Service: 10/31/17 Service Type: 23565 Hosp care 15 min low complexity Subjective: Kristie is seen in weekend coverage for NPP Erika Stewart. The patient is in good spirits, smiling as she greets me, as we have worked together in the past. "I did what you told me I shouldn't do, Dr. Witt. 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 I got depressed." She goes on to say that there is a vocational skills specialist at the [employer] program through [facility] and that she will actively be seeking a new job after discharge, which she hopes to be Thursday (11/02). "I'm taking my medicine though, don't worry about that." She denies SI. Objective - Appearance Appearance: Obese Dysmorphic Features: No Hygiene: Normal Grooming: Well Kept - Behavior Psychomotor Activities: Normal Exhibits Abnormal Movement: No - Attitude and Relatedness Attitude and Relatedness: Cooperative Eye Contact: Good - Speech Quality: Unpressured Latencies: Normal Quantity: Appropriate - Mood Patient's Decription of Mood: "Good" - Affect Observed Affect: Good Affect Consistent with: Euthymia - Thought Process Patient's Thought Process: Coherent Thought Content: No Passive Wish, No Suicidal Planning, No Homicidal Ideation, No Paranoid Ideation - Sensorium Experiencing Hallucinations: No, Sensorium is Clear Type of Hallucinations: Visual: No, Auditory: No, Command: No - Level of Consciousness Level of Consciousness: Alert Orientation: Yes Intact, Yes Orientated to Time, Yes Orientated to Place, Yes Orientated to Person - Impulse Control Impulse Control: Intact - Insight and Judgement Insight and Judgement: Good - Group Participation Particating in Group Activities: Yes - Medication Management Medication Management Adherence: Yes Assessment - Assessment Merits Inpatient Hospitalization: Consolidate Improvements, Pending Safe DC Plan Inpatient DSM-V Dx: F25.0 Clinical Impression: 42 y.o. , white female with a history of schizoaffective disorder, arrives voluntarily to the hospital seeking admission for increased depressive symptoms and suicidal ideation. Plan - Plan Treatment Plan: Name: KRISTIE SEGOVIA Birthdate: 1975 [id number] The patient has been stabilized on a regimen that includes paliperidone Sustenna 234mg IM q4wks and sertraline 200mg PO qday. She is improving and is appropriately requesting discharge for early this week. Continued Medication Management: Continue Outpt Medication Medications: Current Medications Acetaminophen (Tylenol Tab*) 650 mg PO Q4H PRN PRN Reason: PAIN or TEMP > 101 F Al Hydrox/Mg Hydrox/Simethicone (Maalox Plus*) 30 ml PO Q4H PRN PRN Reason: INDIGESTION Bupropion HCl (Wellbutrin Xl *) 150 mg PO DAILY [facility]; Protocol Last Admin: 10/31/17 08:50 Dose: 150 mg Device (Nicotine Mouth Piece*) 1 each INH .CARTRIDGE [facility] Multivitamins (Theragran Tab*) 1 tab PO DAILY [facility] Last Admin: 10/31/17 08:51 Dose: 1 tab Nicotine (Nicotine Inhaler*) 10 mg INH Q2H PRN PRN Reason: CRAVING Nicotine (Nicotine Patch 21 Mg/24 Hr*) 1 patch TRANSDERM DAILY [facility] Last Admin: 10/31/17 08:49 Dose: Not Given Pharmacy Profile Note (Nicotine Patch Removal Note*) 1 note PATCH OFF 2100 [facility] Last Admin: 10/30/17 22:08 Dose: Not Given Sertraline HCl (Zoloft*) 200 mg PO DAILY [facility] Last Admin: 10/31/17 08:51 Dose: 200 mg - Discharge Plan Discharge Plan: Outpatient Follow Up Outpatient [facility] Lab Results - Lab Results Lab Results: 10/29/17 10/29/17 07:26 07:26 Hemoglobin A1c 5.6 Triglycerides 107 Cholesterol 166 LDL Cholesterol 112 HDL Cholesterol 33.1
[2017-10-31] MEDS: Nicotine Patch Removal NOTE PATCH OFF SCH (22:18)
[2017-11-01] MEDS: BuPROPion XL* 150 MG TAB.XL PO SCH (08:05)
[2017-11-01] MEDS: Sertraline* 100 MG TAB PO SCH (08:05)
[2017-11-01] MEDS: Vitamin THERAPEUTIC TAB PO SCH (08:06)
[2017-11-01] MEDS: Nicotine PATCH 21 MG/24 HR* PATCH TRANSDERM SCH (08:06)
[2017-11-01] MEDS: Nicotine Patch Removal NOTE PATCH OFF SCH (21:56)
[2017-11-02] MEDS: BuPROPion XL* 150 MG TAB.XL PO SCH (08:37)
[2017-11-02] MEDS: Sertraline* 100 MG TAB PO SCH (08:37)
[2017-11-02] MEDS: Vitamin THERAPEUTIC TAB PO SCH (08:37)
[2017-11-02 08:40] VITALS: BP 113/78
[2017-11-02] MEDS: Nicotine PATCH 21 MG/24 HR* PATCH TRANSDERM SCH (10:56)
--- NOTE | 2017-11-04 03:39 | DS ---
CC: Dr. Sebastien Bell, [facility] * DISCHARGE SUMMARY: DATE OF ADMISSION: 10/28/17 DATE OF DISCHARGE: 11/02/17 PROVIDER: Erika Stewart NP in Psychiatry. SUPERVISING PHYSICIAN: Alex Witt MD * (DICTATED BY ERIKA STEWART NP ) DIAGNOSES: [place] I: Schizoaffective disorder, depressive type. [place] II: Deferred. CONDITION AT THE TIME OF DISCHARGE: Improved. Psychiatrically cleared. Stable. Kristie participated in groups and was social with peers. Her was agreeable to discharge. She has done well here psychiatrically. She tolerated Wellbutrin well and the increase in Zoloft. [facility] She will require an injection of Invega Sustenna, but this is on the same schedule it was when she arrived. MENTAL STATUS EXAM: At the time of discharge, the patient is calm, cooperative , makes good eye contact. She is alert and oriented x3. Her grooming is good. Her speech phase is normal. Her thought processes are logical. She is not psychotic, not delusional. Denies AH, VH, SI and HI. Insight and judgement are good, willing to follow up. Urged to see a therapist. DISCHARGE INSTRUCTIONS TO THE PATIENT: A. Medications: Wellbutrin XL 150 mg daily, sertraline 200 mg daily, Invega Sustenna 234 mg q.28 days, nicotine patch 21 mg daily. B. Diet: Regular. C: Activities: As tolerated. Kristie is a smoker. She has accepted help in getting her tobacco addiction under control and has accepted the nicotine patch. There are no studies pending at the time of discharge. D. Followup care: She has appointments with Mental Health at this time in the [facility] program. E. Substance abuse followup: Not indicated. HOSPITAL COURSE: A. Chief Complaint: "I don't want to go to work any more because I am not good at it." The patient is a 42-year-old white female with a history of schizoaffective disorder, who arrives brought in by her on a voluntary status after being told at work she needed to take a leave of absence due to not doing a good job anymore. Kristie has worked at the [employer] for 15 years. She has been told after 14 years that her work has not been up to par and is not as perfect as it used to be. She feels like that is because she has been feeling sad and bad about herself and tired. She discussed that since her recent admission, meds have made her feel happier and she is not having any psychotic symptoms, but she is alone a lot and she works the 2:30 p.m. to 11 p.m. shift by herself and she does not sleep enough all the time because she goes to sleep at 12:30 at night and wakes up at 7 in the morning, although sometimes her lets her sleep until 9: 30. She sees her family on the weekends and in the early mornings. 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 Her main stressor is not feeling completely supported by her as well as feeling incompetent at work. Her symptoms include sleepiness, decrease in interest in things, guilt about not doing good work, lack of energy, inability to concentrate, and suicidal ideation. B. Psychiatric treatment was rendered. The patient was admitted to the adult behavioral health unit and placed on 15-minute checks for safety. Kristie did well on the unit and went to group. She interacted with peers well. She did tolerate the med changes well, which were starting Wellbutrin XL 150, increasing Zoloft to 200 mg and continuing Invega Sustenna 234 mg as scheduled from the outpatient clinic. More medication of the Invega Sustenna was not administered. As Kristie is on an antipsychotic, we would like to monitor her hemoglobin A1c and her lipids. HA1c is 5.6. Triglycerides are 107, cholesterol 166, LDL cholesterol 112, and HDL cholesterol 33.1. Incidentally, her TSH is 1.73. We did not meet with her family as he was working. No consults were entered. She is much improved. 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 Although her sleep schedule may not be improved at this time, she does have more interest in life. She has more energy. She can concentrate better and she has not experienced any suicidal ideation since hospitalization. ERIKA STEWART, [employer] [id number]/[facility] #: [id number] [facility] CENTERShaji
== END 2017-11-02 18:15 | disposition home or self-care (01) | DRG 750 ==
LOC: ED 12:35 → BSU 17:59
PROVIDERS: ADMIT Psychiatry & Neurology Psychiatry; ATTEND Psychiatry & Neurology Psychiatry
DX: F25.9 Schizoaffective disorder, unspecified (principal); R45.851 Suicidal ideations; Z68.42 Body mass index [BMI] 45.0-49.9, adult; E66.9 Obesity, unspecified; I10 Essential (primary) hypertension; F17.210 Nicotine dependence, cigarettes, uncomplicated; F31.9 Bipolar disorder, unspecified; J45.909 Unspecified asthma, uncomplicated; F41.9 Anxiety disorder, unspecified; F43.10 Post-traumatic stress disorder, unspecified; Z82.49 Family history of ischemic heart disease and other diseases of the circulatory system; Z91.5 Personal history of self-harm; Z81.1 Family history of alcohol abuse and dependence; Z81.8 Family history of other mental and behavioral disorders; Z72.89 Other problems related to lifestyle
CPT/HCPCS: 36415; 80053; 80061; 80307; 80320; 80329; 81003; 83036; 84443; 84702; 85025; 99222; 99231; 99238; 99284; A9270-GY; G0480

== ENCOUNTER 2023-08-20 09:57 | Inpatient (IN) ==
[2023-08-20 10:58] LABS: ABS Basophils 0.2 10^3/uL (0.0-0.1); ABS Lymphocytes 1.2 10^3/uL (1.0-4.8); ABS Monocytes 0.6 10^3/uL (0.0-0.9); ABS Neutrophils 12.8 10^3/uL (1.5-7.6); ABS Nucleated RBC 0.01 10^3/ul; Eosinophil % 0.2 %; Hematocrit 45.4 % (35-45); Hemoglobin 15.4 g/dL (11.5-14.3); Lymphocyte % 8.3 %; Mean Corpuscular Hemoglobin 31.7 pg (27-33); Mean Corpuscular Volume 93.3 fL (80-97); Mean Platelet Volume 8.7 fL (7.5-11.2); Nucleated Red Blood Cells % 0.1 %/100WBC (0.0-0.8); Platelet Count 375 10^3/uL (150-450); Red Blood Count 4.86 10^6/uL (3.63-4.92); Red Cell Distribution Width 13.9 % (12-17); White Blood Count 14.9 10^3/uL (3.8-11.8)
[2023-08-20 11:42] LABS: ALT 16 U/L (7-52); AST 15 U/L (13-39); Acetaminophen < 15 mcg/mL; Albumin 4.4 g/dL (3.2-5.2); Alcohol, S < 13 mg/dL (<13); Alkaline Phosphatase 95 U/L (35-149); Anion Gap 14 mmol/L (2-16); Blood Urea Nitrogen 9 mg/dL (6-24); CO2 Carbon Dioxide 22 mmol/L (22-32); Calcium 9.6 mg/dL (8.6-10.3); Chloride 97 mmol/L (101-111); Creatinine, Serum 0.74 mg/dL (0.51-0.95); Globulin 4.4 g/dL (2-4); Glucose 129 mg/dL (70-100); Potassium 4.5 mmol/L (3.5-5.0); Salicylate < 2.50 mg/dL (<30); Sodium 133 mmol/L (135-145); Total Bilirubin 0.5 mg/dL (0.2-1.0); Total Protein 8.8 g/dL (6.4-8.9); eGFR CKD-EPI 99.7 (>60)
[2023-08-20 12:15] LABS: HCG Pregnancy < 0.60 mIU/mL
[2023-08-20 12:23] LABS: TSH Ultra Thyroid Stim Horm 1.06 mcIU/mL (0.34-5.60)
[2023-08-20] MEDS ORDERED: Al Hydrox/Mg Hydrox/Simet LIQ 30 ML UDC PO PRN (13:32)
[2023-08-20] MEDS: OLANZapine 10 mg TAB*ODT PO PRN (14:35)
[2023-08-20 23:47] LABS: Urine Appearance Turbid; Urine Bilirubin Negative (Negative); Urine Blood 1+ (Negative); Urine Color Yellow; Urine Glucose Negative (Negative); Urine Ketones 2+ (Negative); Urine Nitrite Negative (Negative); Urine Protein 2+ (>=100 mg/dL) (Negative); Urine Specific Gravity 1.015 (1.002-1.030); Urine Urobilinogen Negative (Negative)
[2023-08-21 00:04] LABS: Urine Benzodiazepine Screen None Detected (None Detect); Urine Cannabinoids Screen None Detected (None Detect); Urine Opiates Screen None Detected (None Detect)
[2023-08-21 00:14] LABS: Urine Bacteria 3+ /HPF (Absent); Urine Red Blood Cell 1+(3-5/hpf) /HPF (0-Trace); Urine Squamous Epithelial Cell Present /HPF (Absent); Urine White Blood Cell 3+(>20/hpf) /HPF (0-Trace)
[2023-08-21 08:29] LABS: HDL Cholesterol 27.5 mg/dL
[2023-08-22] MEDS: SEMAGLUTIDE SUBCUT SCH (17:44)
[2023-08-22] MEDS: [UNRECOGNIZED DRUG - OTHER] SUBCUT SCH (17:44)
[2023-08-24] MEDS: Paliperidone SUSTENNA 234 MG/1.5 ML IM ONE (11:06)
[2023-08-25] MEDS: OLANZapine 5 mg TAB *ODT PO PRN (15:20)
[2023-08-27] MEDS: Paliperidone SUSTENNA 156 MG/1 ML IM ONE (16:02)
[2023-08-28 09:31] VITALS: BP 108/68
== END 2023-08-28 14:45 | disposition home or self-care (01) | DRG 750 ==
LOC: ED 09:57 → EDHOLD 13:32 → BSU 14:10
PROVIDERS: ADMIT Student in an Organized Health Care Education/Training Program; ATTEND Student in an Organized Health Care Education/Training Program

== ENCOUNTER 2024-05-24 22:54 | Inpatient (IN) ==
[2024-05-24] MEDS: Charcoal Activated/SORBITOL 50 GM/240 ML BTL PO ONE (23:42)
[2024-05-25 00:14] LABS: ABS Basophils 0.1 10^3/uL (0.0-0.1); ABS Eosinophils 0.1 10^3/uL (0.0-0.5); ABS Lymphocytes 1.6 10^3/uL (1.0-4.8); ABS Monocytes 0.8 10^3/uL (0.0-0.9); ABS Neutrophils 7.3 10^3/uL (1.5-7.6); ABS Nucleated RBC 0.01 10^3/ul; Hematocrit 46.9 % (35-45); Hemoglobin 15.7 g/dL (11.5-14.3); Lymphocyte % 16.3 %; Mean Corpuscular Hemoglobin 31.9 pg (27-33); Mean Corpuscular Hgb Conc 33.4 g/dL (31-36); Mean Corpuscular Volume 95.4 fL (80-97); Mean Platelet Volume 8.7 fL (7.5-11.2); Nucleated Red Blood Cells % 0.1 %/100WBC (0.0-0.8); Platelet Count 336 10^3/uL (150-450); Red Blood Count 4.91 10^6/uL (3.63-4.92); White Blood Count 9.9 10^3/uL (3.8-11.8)
[2024-05-25 00:50] LABS: ALT 18 U/L (7-52); AST 18 U/L (13-39); Acetaminophen < 15 mcg/mL; Albumin 3.8 g/dL (3.5-5.7); Albumin/Globulin Ratio 0.9 (1-3); Alcohol, S < 13 mg/dL (<13); Alkaline Phosphatase 96 U/L (35-149); Anion Gap 5 mmol/L (2-16); Blood Urea Nitrogen 13 mg/dL (6-24); CO2 Carbon Dioxide 30 mmol/L (22-32); Calcium 9.3 mg/dL (8.6-10.3); Chloride 98 mmol/L (101-111); Creatinine, Serum 0.92 mg/dL (0.51-0.95); Globulin 4.2 g/dL (2-4); Glucose 159 mg/dL (70-100); Potassium 4.5 mmol/L (3.5-5.0); Salicylate < 2.50 mg/dL (<30); Sodium 133 mmol/L (135-145); Total Bilirubin 0.3 mg/dL (0.2-1.0); eGFR CKD-EPI 76.8 (>60)
[2024-05-25 00:57] LABS: HCG Pregnancy < 0.60 mIU/mL
[2024-05-25 01:06] LABS: TSH Ultra Thyroid Stim Horm 1.91 mcIU/mL (0.34-5.60)
[2024-05-25 05:26] LABS: PCO2 Arterial 48 mmHg (35-45); PO2 Arterial 61 mmHg (80-100)
[2024-05-25] MEDS: Iohexol 350 (CONTRAST) 500 ML MDV IV ONE (06:28)
[2024-05-25] MEDS ORDERED: Albuterol/Ipratropium NEB.SOL (2.5/0.5 MG) 3 ML NEB.SOLN INH PRN (07:51)
[2024-05-25 08:10] LABS: Creatine Kinase 316 U/L (10-223)
[2024-05-25] MEDS: cefTRIAXone 1 gm/50 mL D5W 1 GM/50 ML BAG IV SCH (08:11)
[2024-05-25] MEDS: Azithromycin 500 mg/250 ml NS 500 MG/250 ML BAG IVPB SCH (08:14)
[2024-05-25] MEDS: Ondansetron 4 mg VIAL 2 MG/ML 2 ml VIAL IV PRN (10:49)
[2024-05-25 13:52] LABS: Urine Benzodiazepine Screen None Detected (None Detect); Urine Cannabinoids Screen None Detected (None Detect); Urine Opiates Screen None Detected (None Detect)
[2024-05-25 14:13] LABS: Urine Appearance Clear; Urine Bacteria 1+ /HPF (Absent); Urine Bilirubin Negative (Negative); Urine Blood 1+ (Negative); Urine Color Yellow; Urine Glucose Negative (Negative); Urine Ketones Negative (Negative); Urine Nitrite 2+ (Negative); Urine Protein 2+ (>=100 mg/dL) (Negative); Urine Red Blood Cell 3+(>10/hpf) /HPF (0-Trace); Urine Specific Gravity >1.050 (1.002-1.030); Urine Squamous Epithelial Cell Present /HPF (Absent); Urine Urobilinogen Negative (Negative); Urine White Blood Cell 3+(>20/hpf) /HPF (0-Trace)
[2024-05-25] MEDS: Sulfur Hexaflouride MICROSPHR 25 MG VIAL IV PRN (14:31)
[2024-05-26 05:58] LABS: ABS Basophils 0.1 10^3/uL (0.0-0.1); ABS Eosinophils 0.1 10^3/uL (0.0-0.5); ABS Lymphocytes 1.4 10^3/uL (1.0-4.8); ABS Monocytes 0.8 10^3/uL (0.0-0.9); ABS Neutrophils 12.6 10^3/uL (1.5-7.6); ABS Nucleated RBC 0.01 10^3/ul; Eosinophil % 0.8 %; Hematocrit 43.5 % (35-45); Hemoglobin 14.3 g/dL (11.5-14.3); Lymphocyte % 9.3 %; Mean Corpuscular Hemoglobin 31.7 pg (27-33); Mean Corpuscular Hgb Conc 32.8 g/dL (31-36); Mean Corpuscular Volume 96.6 fL (80-97); Nucleated Red Blood Cells % 0.1 %/100WBC (0.0-0.8); Platelet Count 310 10^3/uL (150-450); Red Cell Distribution Width 15.6 % (12-17); White Blood Count 15.1 10^3/uL (3.8-11.8)
[2024-05-26 06:14] LABS: Calcium 8.9 mg/dL (8.6-10.3); Creatinine, Serum 0.85 mg/dL (0.51-0.95); Magnesium 1.7 mg/dL (1.9-2.7); Potassium 4.2 mmol/L (3.5-5.0); eGFR CKD-EPI 84.5 (>60)
[2024-05-26] MEDS: Magnesium Sulfate 2 gm BAG 2 GM/50 ML BAG IVPB ONE (07:51)
[2024-05-26] MEDS ORDERED: Albuterol/Ipratropium NEB.SOL (2.5/0.5 MG) 3 ML NEB.SOLN INH SCH (09:00)
[2024-05-26] MEDS: Albuterol/Ipratropium NEB.SOL (2.5/0.5 MG) 3 ML NEB.SOLN INH SCH (11:27)
[2024-05-26] MEDS: Enoxaparin 40 MG/0.4 ML SYR SUBCUT SCH (13:03)
[2024-05-26] MEDS: Nicotine PATCH 21 MG/24 HR PATCH TRANSDERM SCH (13:03)
[2024-05-27 04:39] LABS: ABS Basophils 0.1 10^3/uL (0.0-0.1); ABS Eosinophils 0.1 10^3/uL (0.0-0.5); ABS Lymphocytes 1.9 10^3/uL (1.0-4.8); ABS Monocytes 0.7 10^3/uL (0.0-0.9); ABS Neutrophils 8.2 10^3/uL (1.5-7.6); ABS Nucleated RBC 0.01 10^3/ul; Eosinophil % 1.3 %; Hemoglobin 13.6 g/dL (11.5-14.3); Lymphocyte % 17.4 %; Mean Corpuscular Hgb Conc 33.3 g/dL (31-36); Mean Corpuscular Volume 96.2 fL (80-97); Mean Platelet Volume 8.5 fL (7.5-11.2); Nucleated Red Blood Cells % 0.1 %/100WBC (0.0-0.8); Platelet Count 290 10^3/uL (150-450); Red Blood Count 4.26 10^6/uL (3.63-4.92); Red Cell Distribution Width 15.5 % (12-17)
[2024-05-27 05:29] LABS: Calcium 8.8 mg/dL (8.6-10.3); Creatinine, Serum 0.81 mg/dL (0.51-0.95); Magnesium 1.8 mg/dL (1.9-2.7); Potassium 4.1 mmol/L (3.5-5.0); eGFR CKD-EPI 89.5 (>60)
[2024-05-27] MEDS: Albuterol/Ipratropium NEB.SOL (2.5/0.5 MG) 3 ML NEB.SOLN INH SCH (06:43)
[2024-05-27] MEDS: Magnesium Sulfate 2 gm BAG 2 GM/50 ML BAG IVPB ONE (08:09)
[2024-05-27] MEDS: Paliperidone SUSTENNA 234 MG/1.5 ML IM ONE (12:42)
[2024-05-28 05:51] LABS: ABS Eosinophils 0.2 10^3/uL (0.0-0.5); ABS Lymphocytes 1.9 10^3/uL (1.0-4.8); ABS Monocytes 0.7 10^3/uL (0.0-0.9); ABS Neutrophils 7.1 10^3/uL (1.5-7.6); Eosinophil % 2.3 %; Hematocrit 40.6 % (35-45); Hemoglobin 13.4 g/dL (11.5-14.3); Lymphocyte % 18.8 %; Mean Corpuscular Hemoglobin 31.7 pg (27-33); Mean Corpuscular Volume 95.9 fL (80-97); Mean Platelet Volume 8.6 fL (7.5-11.2); Platelet Count 285 10^3/uL (150-450); Red Blood Count 4.23 10^6/uL (3.63-4.92); White Blood Count 9.9 10^3/uL (3.8-11.8)
[2024-05-28 06:37] LABS: Calcium 9.2 mg/dL (8.6-10.3); Creatinine, Serum 0.76 mg/dL (0.51-0.95); Magnesium 1.9 mg/dL (1.9-2.7); Potassium 4.1 mmol/L (3.5-5.0); eGFR CKD-EPI 96.6 (>60)
[2024-05-29 04:40] LABS: ABS Basophils 0.1 10^3/uL (0.0-0.1); ABS Eosinophils 0.2 10^3/uL (0.0-0.5); ABS Lymphocytes 1.5 10^3/uL (1.0-4.8); ABS Monocytes 0.7 10^3/uL (0.0-0.9); ABS Neutrophils 5.2 10^3/uL (1.5-7.6); ABS Nucleated RBC 0.01 10^3/ul; Eosinophil % 3.1 %; Hematocrit 37.9 % (35-45); Hemoglobin 12.8 g/dL (11.5-14.3); Lymphocyte % 19.5 %; Mean Corpuscular Hemoglobin 32.5 pg (27-33); Mean Corpuscular Hgb Conc 33.8 g/dL (31-36); Mean Corpuscular Volume 96.4 fL (80-97); Mean Platelet Volume 8.7 fL (7.5-11.2); Nucleated Red Blood Cells % 0.1 %/100WBC (0.0-0.8); Platelet Count 266 10^3/uL (150-450); Red Blood Count 3.93 10^6/uL (3.63-4.92); Red Cell Distribution Width 15.2 % (12-17); White Blood Count 7.7 10^3/uL (3.8-11.8)
[2024-05-29 05:28] LABS: Albumin 3.1 g/dL (3.5-5.7); Albumin/Globulin Ratio 0.9 (1-3); Calcium 8.8 mg/dL (8.6-10.3); Creatinine, Serum 0.59 mg/dL (0.51-0.95); Globulin 3.6 g/dL (2-4); Magnesium 1.7 mg/dL (1.9-2.7); Potassium 4.1 mmol/L (3.5-5.0); Total Bilirubin 0.4 mg/dL (0.2-1.0); Total Protein 6.7 g/dL (6.4-8.9); eGFR CKD-EPI 111.1 (>60)
[2024-05-29] MEDS ORDERED: Albuterol/Ipratropium NEB.SOL (2.5/0.5 MG) 3 ML NEB.SOLN INH PRN (11:38)
[2024-05-30 13:25] VITALS: BP 131/81
== END 2024-05-30 13:50 | disposition home or self-care (01) | DRG 951 ==
LOC: ED 22:54 → SUATTDRO 05-25 07:37 → EDHOLD 05-25 07:37 → ICU 05-25 14:13 → MED 05-29 15:22
PROVIDERS: ADMIT Student in an Organized Health Care Education/Training Program; ATTEND Internal Medicine